=== PATIENT | female | born 1955 | race Caucasian/White ===

== ENCOUNTER 2019-08-17 10:24 | Outpatient (CLI) | payer OTHER, BC, SELFPAY ==
--- NOTE | 2019-08-17 10:42 | EST_ITS ---
Patient Info Name: Elke Yuan Age: 63 years : 1955 Gender: Female Ht: 63 in Wt: 120 lbs BSA: 1.56 m2 Exam Date: 08/17/2019 11:49 AM Exam Location: [facility] Stress Patient Status: Outpatient Admit Date: 08/17/2019 Staff Ordering Physician: Angy Urbina Attending Provider: Angy Urbina Exercise Technologist: Robyn Jack RDCS Exercise Physician: Demetrius Bowen DO Exam Type: CA stress test treadmill Study Info A treadmill exercise stress test was performed. Summary 1. 1. Negative Kanu exercise stress test for ischemic ST changes by ECG criteria. 2. 2. Good functional capacity, achieving 7 METs of workload. 3. 3. Baseline hypertension with hypertensive response to exercise. 4. 4. Appropriate HR response to exercise. 5. 5. Appropriate HR recovery at 1 minute post exercise. 6. 6. No imaging with stress testing. 7. 7. Patient informed of the above results. Protocol: Kanu Stress ECG Details Stage: REST Duration (min): 5 min : 54 sec Speed (mph): 0.0 Grade (%): 0 HR (bpm): 65 SBP (mmHg): 153 DBP (mmHg): 80 METS: --- Stage: REST Duration (min): 12 min : 59 sec Speed (mph): 0.0 Grade (%): 0 HR (bpm): 77 SBP (mmHg): 153 DBP (mmHg): 80 METS: --- Stage: STAGE 1 Duration (min): 1 min : 0 sec Speed (mph): 1.7 Grade (%): 10 HR (bpm): 94 SBP (mmHg): 153 DBP (mmHg): 80 METS: --- Stage: STAGE 1 Duration (min): 2 min : 0 sec Speed (mph): 1.7 Grade (%): 10 HR (bpm): 110 SBP (mmHg): 153 DBP (mmHg): 80 METS: --- Stage: STAGE 1 Duration (min): 3 min : 0 sec Speed (mph): 1.7 Grade (%): 10 HR (bpm): 116 SBP (mmHg): 216 DBP (mmHg): 85 METS: --- Stage: STAGE 2 Duration (min): 1 min : 0 sec Speed (mph): 2.5 Grade (%): 12 HR (bpm): 126 SBP (mmHg): 216 DBP (mmHg): 85 METS: --- Stage: STAGE 2 Duration (min): 2 min : 0 sec Speed (mph): 2.5 Grade (%): 12 HR (bpm): 133 SBP (mmHg): 216 DBP (mmHg): 85 METS: --- Stage: STAGE 2 Duration (min): 3 min : 0 sec Speed (mph): 2.5 Grade (%): 12 HR (bpm): 151 SBP (mmHg): 255 DBP (mmHg): 94 METS: --- Stage: STAGE 3 Duration (min): 0 min : 25 sec Speed (mph): 3.4 Grade (%): 14 HR (bpm): 141 SBP (mmHg): 263 DBP (mmHg): 97 METS: --- Stage: RECOVERY Duration (min): 0 min : 34 sec Speed (mph): 0.0 Grade (%): 0 HR (bpm): 133 SBP (mmHg): 247 DBP (mmHg): 97 METS: --- Stage: RECOVERY Duration (min): 1 min : 34 sec Speed (mph): 0.0 Grade (%): 0 HR (bpm): 98 SBP (mmHg): 247 DBP (mmHg): 97 METS: --- Stage: RECOVERY Duration (min): 2 min : 34 sec Speed (mph): 0.0 Grade (%): 0 HR (bpm): 87 SBP (mmHg): 247 DBP (mmHg): 97 METS: --- Stage: RECOVERY Duration (min): 3 min :
[2019-08-17 11:15] LABS: Blood Urea Nitrogen 16 mg/dL (7-17); Calcium 9.2 mg/dL (8.4-10.2); Carbon Dioxide 26 mmol/L (22-30); Chloride 105 mmol/L (98-107); Estimated Glomerular Filt Rate > 60; Glucose 87 mg/dL (65-105); Potassium 4.1 mmol/L (3.4-5.0); Sodium 138 mmol/L (137-145)
== END 2019-08-17 10:25 | disposition home or self-care (01) ==
LOC: ANHCARD 10:25
PROVIDERS: PCP Family Medicine; Visit Provider Physician Assistant Medical
DX: E87.5 Hyperkalemia (principal); R00.2 Palpitations; I10 Essential (primary) hypertension
CPT/HCPCS: 36415; 80048; 93017

== ENCOUNTER 2020-06-06 14:30 | Outpatient (CLI) | payer BC, MEDICARE, OTHER, SELFPAY ==
--- NOTE | ~2020-06-06 | MM_ITS ---
EXAMINATION: MM screening craol BI w alee HISTORY: Screening mammogram TECHNIQUE: Craniocaudal and mediolateral oblique 3-D tomosynthesis images were obtained and synthetic 2-D images were generated. Right rotated lateral cc view. CAD analysis was submitted and interpreted . COMPARISON: 11/01/2018 bilateral digital screening mammogram / diagnostic right digital mammogram and limited right breast ultrasound 05/24/2017 bilateral digital screening mammogram BREAST PARENCHYMAL COMPOSITION: The breasts are heterogeneously dense, which may obscure small masses . FINDINGS: There is no evidence of suspicious mass, calcification, or architectural distortion to sugg est malignancy in either breast. There has been no suspicious interval change. IMPRESSION: 1. No mammographic evidence of malignancy. 2. Recommend routine screening mammography in one year. BI-RADS Category 1: Negative Reviewed, dictated and finalized at location A.
== END 2020-06-06 14:31 | disposition home or self-care (01) ==
LOC: ANHIMG 14:33
PROVIDERS: PCP Family Medicine; Visit Provider Obstetrics & Gynecology
DX: Z12.31 Encounter for screening mammogram for malignant neoplasm of breast (principal)
CPT/HCPCS: 77063; 77067

== ENCOUNTER 2020-10-06 11:16 | Outpatient (CLI) | payer MEDICARE, OTHER, SELFPAY ==
--- NOTE | ~2020-10-06 | XR_ITS ---
EXAMINATION: XR foot RT min 3V DATE: 10/06/2020 11:39 INDICATION: Chronic right foot pain. TECHNIQUE: 4 views of right foot were obtained. COMPARISON: None. FINDINGS: There are surgical changes of bunionectomy with screw in first metatarsal. No fracture. The re is mild osteoarthritis of first metatarsophalangeal joint and some of the interphalangeal joints. IMPRESSION: 1. Mild polyarticular osteoarthritis. 2. Bunionectomy. Reviewed, dictated and finalized at location A.
== END 2020-10-06 11:17 | disposition home or self-care (01) ==
PROVIDERS: PCP Family Medicine; Visit Provider Nurse Practitioner Family
DX: M19.071 Primary osteoarthritis, right ankle and foot (principal)
CPT/HCPCS: 73630

== ENCOUNTER 2021-05-09 07:17 | Outpatient (CLI) | payer MEDICARE, OTHER, SELFPAY ==
[2021-05-09 07:57] LABS: Basophils Absolute Auto 0.1 K/mm3 (0.0-0.1); Basophils Percent Auto 1.5 % (0.2-1.2); Eosinophils Absolute Auto 0.2 K/mm3 (0-0.3); Eosinophils Percent Auto 3.1 % (0-4.4); Hematocrit 38.5 % (37.0-47.0); Hemoglobin 12.5 g/dL (12.0-15.0); Immature Granulocyte Absolute 0.01 K/mm3 (0.00-0.031); Immature Granulocyte Percent A 0.2 % (0-0.5); Lymphocytes Absolute Auto 1.94 K/mm3 (0.9-3.2); Lymphocytes Percent Auto 35.7 % (18.3-44.2); Mean Corpuscular HGB Conc 32.5 g/dl (32-36); Mean Corpuscular Hemoglobin 33.2 pg (26-34); Mean Corpuscular Volume 102.4 fl (80-100); Mean Platelet Volume 10.8 fl (7.4-10.4); Monocytes Absolute Auto 0.5 K/mm3 (0.1-0.6); Monocytes Percent Auto 9.6 % (2.6-8.5); Neutrophils Absolute Auto 2.7 K/mm3 (1.3-6.7); Neutrophils Percent Auto 49.9 % (45.5-73.1); Platelet Count Result 210 k/mm3 (150-375); Red Blood Count 3.76 M/mm3 (4.2-5.4); Red Cell Distribution Width 12.2 % (11.5-14.5); White Blood Count 5.4 K/mm3 (4.5-10.0)
[2021-05-09 08:06] LABS: Alanine Aminotransferase 26 U/L (4-35); Albumin Level 4.1 g/dL (3.5-5.1); Alkaline Phosphatase 63 U/L (38-126); Anion Gap 5 mmol/L (8-16); Aspartate Amino Transferase 33 U/L (14-36); Bilirubin,Total 0.5 mg/dL (0.2-1.3); Blood Urea Nitrogen 11 mg/dL (7-17); Calcium 8.8 mg/dL (8.4-10.2); Carbon Dioxide 29 mmol/L (22-30); Chloride 105 mmol/L (98-107); Cholesterol 186 mg/dL (0-200); Estimated Glomerular Filt Rate > 60; Glucose 102 mg/dL (65-110); HDL Direct 59 mg/dL; Potassium 3.7 mmol/L (3.4-5.0); Sodium 139 mmol/L (137-145); Triglycerides 87 mg/dL (<150)
[2021-05-09 08:17] LABS: LDL Cholesterol Direct 87 mg/dL
== END 2021-05-09 07:18 | disposition home or self-care (01) ==
LOC: ANHLAB 07:20
PROVIDERS: PCP Family Medicine; Visit Provider Physician Assistant Medical
DX: I10 Essential (primary) hypertension (principal); E78.5 Hyperlipidemia, unspecified
CPT/HCPCS: 36415; 80053; 80061; 84443; 85025

== ENCOUNTER 2021-07-30 01:19 | Day surgery (SDC) | payer MEDICARE, OTHER, SELFPAY ==
[2021-07-23 10:45] VITALS: BMI 22.3
--- NOTE | 2021-07-23 11:04 | PC.NURSE ---
Report to the Outpatient Waiting Room, entrance under the green pavilion located off [facility], at time _10:30AM on date __07/30/21 . OR Time: _11:30AM . - You and your visitor will be asked a series of questions to screen for COVID 19 for your protection. - Only one visitor is allowed at this time. - The patient visitor is requested to leave or wait in car when not with patient. - A mask is required within the hospital. Patients may have clear liquids (water, carbonated beverages, clear teas, apple juice) until 3 hours prior to surgery with a maximum of 20 ounces. - No food from midnight until time of surgery - Infants may have breast milk until 4 hours before surgery, formula 6 hours prior to surgery. - Children will be allowed to drink immediately following surgery. If applicable, please bring a bottle or sippy cup to assist with drinking. Juice, water, soda, and popsicles are readily available. For infants on formula, please bring formula the day of surgery. Pacifiers are allowed. Take the following medications with a SIP of water the morning of surgery: ___MORNING MEDICATION Medications to discontinue per physician NONE Date to take last dose Please no make-up, nail american, hairspray, perfume, deodorant, or body powder the day of surgery. No jewelry (including any body piercings) or valuables the day of surgery, leave them at home. Please take a shower or bath the night before, or the morning of, surgery with an antibacterial soap. Wear comfortable, loose fitting clothing. Children are encouraged to wear pajamas. - Jewelry must be removed prior to entering the operating room. Rings and piercings that are not removed may be cut off. - The hospital will not accept responsibility for valuables. - Please leave all valuables, including medications, at home the day of surgery. If you are going home after surgery, a licensed regional intermodal truck driver must drive you home. *MAY DRIVE SELF HOME(LOCAL ANESTHESIA) - NO public transportation without another adult. - We recommend that an adult stay with you for 24 hours following discharge. - We also recommend that you do not drive, make important decision, drink alcoholic beverages, or take any drugs that were not prescribed by your health care provider for at least 24 hours after your discharge time. For Pediatric surgeries, we recommend two adults accompany the child home (only one inside the building at this time). Follow any additional instructions given to you from your surgeon. If you or anyone in your household have experienced Covid symptoms in the past week, please notify your surgeon or the nurse liaison at the phone number below for possible testing. Telephone instructions given to ___PATIENT and asked if any additional questions and then verbalized understanding. Patient advised to call surgeon office or pre surgery nurse liaison [phone] if any additional questions.
--- NOTE | 2021-07-27 06:48 | PM.HPGS ---
History of Present Illness History of Present Illness Consent: Risks, benefits, and alternatives have been discussed and questions answered. Patient agrees to proceed with procedure. Chief complaint: Lower Lip Lesion Narrative: Elke Yuan is a 65 year old female with a pigmented lesion lower lateral aspect of the right lower tongue lip right lower lip Review of Systems Review of Systems: All systems reviewed & are unremarkable except as noted in HPI and below PMFSH Past Medical History Medical History Angioedema BMI 20.0-20.9, adult BMI 22.0-22.9, adult BMI 23.0-23.9, adult Encounter for screening colonoscopy Lesion of lip Sinusitis, acute Tobacco abuse Surgical History Surgical History H/O hand surgery Family History Family History Mother Cerebrovascular accident Sibling Family history of malignant neoplasm Father Family history of kidney disease Family history of heart disease in male family member before age 55 Social History Social History Smoking packs per day: 0.5 Smoking cigarettes per day: 10.0 Years smoked: 30 Smoking pack-years: 15.00 Smoking status: Current every day smoker Tobacco type: cigarettes Second hand tobacco smoke exposure: Yes Additional smoking assessment comments: 4 CIG/DAY CURRENTLY Alcohol intake: current Drinks per week: 4 Substance use: never Substance use type: does not use Living arrangements: with family Additional living arrangements comments: [facility] 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 Gender identity (if verbalized by the patient): Female Sexual Orientation (if Verbalized by the Patient): Straight or Heterosexual Spiritual care concerns: No Agree to blood products: Yes Comments family medical social history unremarkable Meds Home Medications and Allergies Home Medications Medication Instructions Recorded Confirmed Type albuterol sulfate 90 mcg/actuation 1 puff inhalation Q4H PRN 08/12/20 07/23/21 Rx aerosol inhaler (ProAir HFA) shortness of breath or wheezing #8.5 grams losartan 50 mg tablet 50 mg PO QAM 08/27/20 07/23/21 History epinephrine 0.3 mg/0.3 mL 0.3 mg (0.3 mL) IM ONCE #1 ea 10/06/20 07/23/21 Rx injection, auto-injector (EpiPen 2-Chance) lansoprazole 30 mg capsule,delayed 30 mg PO DAILY #90 caps 10/31/20 07/23/21 Rx release alprazolam 1 mg tablet 1 mg PO TID PRN anxiety #90 tabs 05/06/21 07/23/21 Rx rosuvastatin 5 mg tablet (Crestor) 5 mg PO QAM 07/07/21 07/23/21 History fluticasone propionate 50 2 spray intranasal DAILY PRN 07/23/21 07/23/21 History mcg/actuation nasal Congestion spray,suspension (Flonase Allergy Relief) levothyroxine 50 mcg tablet 50 mcg PO QAM 07/23/21 07/23/21 History Allergies Allergy/AdvReac Type Severity Reaction Status Date / Time ABHISHEK Inhibitors Allergy Severe Swelling Verified 07/23/21 10:38 of Lip/Tongue/Throat benazepril Allergy Severe angioedema Verified 07/23/21 10:38 hydromorphone Allergy Unknown Itching Verified 07/23/21 10:38 dicyclomine AdvReac Mild Dizziness Verified 07/23/21 10:38 [From A-Spas (dicyclomine)] TREE NUTS Allergy Severe Unknown Uncoded 07/23/21 10:38 Exam Narrative: chest clear heart without murmurs abdomen soft thick minute lesion right lower lip Assessment and Plan Assessment and plan (1) Lesion of lip: Code(s): K13.0 - Diseases of lips Status: Acute Plan plan is excision lesion right lower lip
--- NOTE | 2021-07-28 09:09 | SUR.PREOP ---
Pt called to report new medications (prednisone and tessalon pearls) for COPD flare/bronchitis. Pt states she had a negative Covid test yesterday at [facility]. Pt states symptoms started about a month ago and have been improving overall, except for a lingering cough and some fatigue. Pt instructed to report if symptoms worsened prior to surgery date. Pt verbalizes understanding.
--- NOTE | 2021-07-30 06:29 | WPDHPUPDATE1 ---
History and Physical Update Update Date/Time: 07/30/21 06:29 History and Physical has been reviewed, including an updated exam of the patient. There are NO changes in the patient's condition. Risks, benefits, and alternatives have been discussed and questions answered. Patient agrees to proceed with procedure.
[2021-07-30] MEDS: LIDO 1%/EPINEPHRINE/PF 1:200,000 30 ML VIAL 5 ML XX (10:45)
[2021-07-30 11:00] VITALS: BP 163/75; PULSE 74; RESP 16; TEMP 36.9; O2SAT 99
[2021-07-30 11:03] VITALS: BP 144/83; PULSE 75; RESP 14; O2SAT 98
[2021-07-30 11:11] VITALS: BP 168/80; RESP 16; O2SAT 97
--- NOTE | 2021-07-30 11:14 | W.PM.PROC2 ---
Procedure Note - Detailed Date of Procedure 07/30/21 Pre-op Diagnosis Lower Lip Lesion Post-op Diagnosis Same Procedure Performed Excision lower lip lesion Surgeon Jason Jackson MD Description of Procedure After induction local anesthesia pigmented lesion of the lower lip on the right side was elliptically excised and closed with 5 0 chromic
[2021-07-30 11:15] VITALS: BP 141/75; PULSE 68; RESP 16; O2SAT 98
--- NOTE | 2021-07-30 12:59 | SUR.PREOP ---
1040: PT STATES WAS IN THE HOSP MON 07/27/21 FOR CHEST PAIN. SEEN BY PROPOSAL WRITER. AR RULED OUT. COVID RULLED OUT. BRONCHITIS DX. BETTER TODAY. DR. ZEPEDA AWARE.
== END 2021-07-30 11:50 | disposition home or self-care (01) ==
PROVIDERS: PCP Family Medicine; Visit Provider Otolaryngology
PROC: (CPT 40810; principal; 2021-07-30 11:30)
DX: R23.4 Changes in skin texture (principal); F17.210 Nicotine dependence, cigarettes, uncomplicated; E03.9 Hypothyroidism, unspecified; Z79.51 Long term (current) use of inhaled steroids
CPT/HCPCS: 11441; 88305; 88342

== ENCOUNTER 2021-08-13 09:51 | Outpatient (CLI) | payer MEDICARE, OTHER, SELFPAY ==
--- NOTE | ~2021-08-13 | MM_ITS ---
EXAMINATION: MM screening carol BI w alee HISTORY: Screening TECHNIQUE: Craniocaudal and mediolateral oblique 3-D tomosynthesis images were obtained and synthetic 2-D images were generated. CAD analysis was submitted and interpreted. COMPARISON: Comparison to multiple prior studies sequentially, with oldest reviewed study dated 04/02. BREAST PARENCHYMAL COMPOSITION: The breasts are heterogenously dense, which may obscure small masses FINDINGS: There is no evidence of suspicious mass, calcification, or architectural distortion to sugg est malignancy in either breast. There has been no suspicious interval change. IMPRESSION: 1. No mammographic evidence of malignancy. 2. Recommend routine screening mammography in one year. BI-RADS Category 1: Negative Reviewed, dictated and finalized at location A.
--- NOTE | ~2021-08-13 | DEXA_ITS ---
Bone Density Report Name: KIM MORALES Age: 65 Sex: Female Ethnicity: White Date of : 1955 Indication: postmenopausal; screening for osteoporosis; height loss; Referring Provider: RODERICK MOSES Study: Bone densitometry was performed. Exam Date: August 13, 2021 Accession number: [id number] Bone Density: Region BMD T-score Z-score Classification AP Spine(L1-L4) 1.201 1.4 3.3 Normal Femoral Neck (Left) 0.727 -1.1 0.5 Osteopenia Total Hip (Left) 0.824 -1.0 0.3 Normal Femoral Neck (Right) 0.739 -1.0 0.6 Normal Total Hip (Right) 0.845 -0.8 0.5 Normal Total Hip Mean 0.834 -0.9 0.4 Normal World Health Organization criteria for BMD impression classify patients as: Normal (T-score at or above -1.0), Osteopenia (T-score between -1.0 and -2.5), or Osteoporosis (T-score at or below -2.5). 10-year Fracture Risk(1): Major Osteoporotic Fracture 8.4% Hip Fracture 1.3% Reported Risk Factors: [place] (), Neck BMD=0.727, BMI=24.1, smoking (1) FRAX(R) Version 3.08. Fracture probability calculated for an untreated patient. Fracture probability may be lower if the patient has received treatment. Clinical Information Provided by Patient: Smokes Has the following medical conditions: uterine ablation Patient maximum height was 64 Menopause Age: 44 No regular weight bearing exercise Drinks caffeinated beverages Onset of menses at age 16 Number of children 0 Impression: The patient has low bone mass, based on the Left Femoral Neck T-score. The patient has an estimated ten-year risk of hip fracture of 1.3% and an estimated ten-year risk of major fracture of 8.4%, based on the WHO FRAX algorithm. The patient has risk factors, including: smoking. Discussion: BONE DENSITY IS LOW AT ONE OR MORE SKELETAL SITES. This patient's lowest T-score is low at one or more skeletal sites. It meets the World Health Organization's (WHO) criteria for ?low bone mass? (T-score between -1.0 and -2.5). The patient's 10-year risk of fracture as calculated by FRAX is less than the threshold where pharmacological therapy is recommended by the National Osteoporosis Foundation (NOF). However, all treatment decisions require clinical judgment and consideration of individual patient factors, including patient preferences, comorbidities, previous drug use, risk factors not captured in the FRAX model (e.g., frailty, falls, vitamin D deficiency, increased bone turnover, interval significant decline in bone density) and possible under or overestimation of fracture risk by FRAX. The patient should follow a healthful lifestyle (good nutrition with adequate calcium and vitamin D, and appropriate weight-bearing exercise). Follow-Up: Consider repeating this study in 2 to 3 years to reassess this patient's status, o
== END 2021-08-13 09:52 | disposition home or self-care (01) ==
PROVIDERS: PCP Family Medicine; Visit Provider Obstetrics & Gynecology
DX: Z12.31 Encounter for screening mammogram for malignant neoplasm of breast (principal); Z78.0 Asymptomatic menopausal state; M85.852 Other specified disorders of bone density and structure, left thigh
CPT/HCPCS: 77063; 77067; 77080

== ENCOUNTER 2023-03-05 07:02 | Outpatient (CLI) | payer MEDICARE, OTHER, SELFPAY ==
[2023-03-05 07:56] LABS: Alanine Aminotransferase 43 U/L (6-35); Albumin Level 4.1 g/dL (3.5-5.1); Alkaline Phosphatase 72 U/L (38-126); Aspartate Amino Transferase 36 U/L (14-36); Bilirubin,Total 0.5 mg/dL (0.2-1.3)
== END 2023-03-05 07:03 | disposition home or self-care (01) ==
LOC: ANHLAB 07:04
PROVIDERS: PCP Family Medicine; Visit Provider Nurse Practitioner Family
DX: R74.8 Abnormal levels of other serum enzymes (principal)
CPT/HCPCS: 36415; 80076

== ENCOUNTER 2023-03-10 10:19 | Outpatient (CLI) | payer MEDICARE, OTHER, SELFPAY ==
--- NOTE | ~2023-03-10 | MM_ITS ---
EXAMINATION: MM screening carol BI w alee HISTORY: Screening TECHNIQUE: Craniocaudal and mediolateral oblique 3-D tomosynthesis images were obtained and synthetic 2-D images were generated. CAD analysis was submitted and interpreted. COMPARISON: Comparison to multiple prior studies sequentially, with oldest reviewed study dated 10/01. BREAST PARENCHYMAL COMPOSITION: Dense: The breasts are heterogeneously dense, which may obscure small masses FINDINGS: There is no evidence of suspicious mass, calcification, or architectural distortion to sugg est malignancy in either breast. There has been no suspicious interval change. IMPRESSION: 1. No mammographic evidence of malignancy. 2. Recommend routine screening mammography in one year. BI-RADS Category 1: Negative Reviewed, dictated and finalized at location A. ORN PHOTOGRAPHER
== END 2023-03-10 10:20 | disposition home or self-care (01) ==
PROVIDERS: PCP Family Medicine; Visit Provider Obstetrics & Gynecology
DX: Z12.31 Encounter for screening mammogram for malignant neoplasm of breast (principal)
CPT/HCPCS: 77063; 77067

== ENCOUNTER 2023-08-03 07:37 | Outpatient (CLI) | payer MEDICARE, OTHER, SELFPAY ==
[2023-08-03 08:18] LABS: Basophils Absolute Auto 0.1 K/mm3 (0.0-0.1); Basophils Percent Auto 1.6 % (0.2-1.2); Eosinophils Absolute Auto 0.1 K/mm3 (0-0.3); Eosinophils Percent Auto 2.6 % (0-4.4); Hematocrit 38.1 % (37.0-47.0); Hemoglobin 12.9 g/dL (12.0-15.0); Immature Granulocyte Absolute 0.02 K/mm3 (0.00-0.031); Immature Granulocyte Percent A 0.4 % (0-0.5); Lymphocytes Absolute Auto 1.76 K/mm3 (0.9-3.2); Lymphocytes Percent Auto 35.6 % (18.3-44.2); Mean Corpuscular HGB Conc 33.9 g/dl (32-36); Mean Corpuscular Hemoglobin 32.9 pg (26-34); Mean Corpuscular Volume 97.2 fl (80-100); Mean Platelet Volume 10.8 fl (7.4-10.4); Monocytes Absolute Auto 0.6 K/mm3 (0.1-0.6); Monocytes Percent Auto 11.9 % (2.6-8.5); Neutrophils Absolute Auto 2.4 K/mm3 (1.3-6.7); Neutrophils Percent Auto 47.9 % (45.5-73.1); Platelet Count Result 224 k/mm3 (150-375); Red Blood Count 3.92 M/mm3 (4.2-5.4); Red Cell Distribution Width 12.2 % (11.5-14.5); White Blood Count 4.9 K/mm3 (4.5-10.0)
[2023-08-03 08:39] LABS: Alanine Aminotransferase 30 U/L (6-35); Albumin Level 4.5 g/dL (3.5-5.1); Alkaline Phosphatase 58 U/L (38-126); Anion Gap 6 mmol/L (4-12); Aspartate Amino Transferase 32 U/L (14-36); Bilirubin,Total 0.6 mg/dL (0.2-1.3); Blood Urea Nitrogen 16 mg/dL (7-17); Calcium 9.4 mg/dL (8.4-10.2); Carbon Dioxide 30 mmol/L (22-30); Chloride 100 mmol/L (98-107); Cholesterol 158 mg/dL (0-200); Estimated Glomerular Filt Rate > 60; Glucose 99 mg/dL (65-110); HDL Direct 55 mg/dL; Sodium 136 mmol/L (137-145); Triglycerides 135 mg/dL (<150)
[2023-08-03 08:49] LABS: LDL Cholesterol Direct 80 mg/dL
== END 2023-08-03 07:38 | disposition home or self-care (01) ==
LOC: ANHLAB 07:39
PROVIDERS: PCP Family Medicine; Visit Provider Physician Assistant Medical
DX: E03.9 Hypothyroidism, unspecified (principal); E78.2 Mixed hyperlipidemia; I10 Essential (primary) hypertension; R31.29 Other microscopic hematuria; R74.8 Abnormal levels of other serum enzymes
CPT/HCPCS: 36415; 80053; 80061; 84443; 85025

== ENCOUNTER 2024-04-17 16:12 | Outpatient (CLI) | payer MEDICARE, OTHER, SELFPAY ==
--- NOTE | ~2024-04-17 | MM_ITS ---
EXAMINATION: MM screening [facility] BI w alee HISTORY: Screening mammogram TECHNIQUE: Craniocaudal and mediolateral oblique 3-D tomosynthesis images were obtained and synthetic 2-D images were generated. CAD analysis was submitted and interpreted. COMPARISON: 03/10/2023, 08/13/2021, 06/06/2020, 11/01/2018 BREAST PARENCHYMAL COMPOSITION:Dense: The breasts are heterogeneously dense, which may obscure small masses. FINDINGS: No suspicious mass, calcification, or architectural distortion are identified in either xavier ast to suggest malignancy. There has been no suspicious interval change. IMPRESSION: No mammographic evidence of malignancy. Recommend routine screening mammography in one year. BI-RADS Category 1: Negative Reviewed, dictated and finalized at location .
--- OUTSIDE RECORDS SUMMARY | 2024-04-17 18:02 | XMS_ITS | Referral Summary ---
Author Organization [facility] [employer] Address [address] [place] [address] Care Team Providers Care Ager Operator Name Role Phone Anthony Strong MD Primary Care Provider [phone] Source Comments [facility],non-owned Affiliates and Associated Physician Practices is amultiple site organization consisting of ambulatory clinics and hospital sitesin [place], [place], [place] and [place]. This disclosure is being madepursuant to the Care Everywhere program and may not contain all information available regarding this patient. Last updated 17.[facility] Allergies Active Allergy Reactions Criticality Noted Date Comments Hydromorphone Itching 10/24/2018 Tree Nuts Anaphylaxis High 10/12/2016 Medications * Be aware that medications may not be up to date on this document. Alwaysverify current medications with the patient. Medication Sig Dispensed Refills Start Date End Date Status levothyroxine (SYNTHROID) 50 MCG tablet Take 50 mcg by mouth Active EPINEPHrine (EPIPEN) 0.3 MG/0.3ML auto-injector pen Inject 0.3 mg into muscle once Active benazepril (LOTENSIN) 5 MG tablet Take 5 mg by mouth once daily 3 06/18/2018 Active Probiotic Product (ALIGN) 4 MG Take 1 capsule by mouth once daily Active diphenhydrAMINE (BENADRYL ALLERGY) 25 MG capsule Take 25 mg by mouth every 6 hours as needed for Itching Active fluticasone propionate (FLONASE) 50 MCG/ACT nasal spray [place] 2 sprays into each nostril once daily Active ALPRAZolam (XANAX PO) Take by mouth as needed Active Active Problems Problem Noted Date Diagnosed Date Elevated liver enzymes 08/30/2018 Overview (09/04/2018): 09/04/18 Fibroscan CAP 244, E 8.9 kPa Immunizations Name Administration Dates Next Due FLU VACCINE QUAD IIV4 PF ID 12/30/2015 INFLUENZA VACCINE, QUADR. (F LUZONE; FLULAVAL; FLUARIX; AFLURIA QUADRIVALENT; 6MO+), 0.5 ML (IIV4) 11/30/2018 TDAP (7yrs+) 11/30/2018 ZOSTER VACCINE, LIVE 12/30/2015 Social History Tobacco Use Types Packs/Day Years Used Date Smoking Tobacco: Every Day Cigarettes Smokeless Tobacco: Never Comments:second hand smoke e xposure Alcohol Use Standard Drinks/Week Comments Not Currently 10 (1 standard drink = 0.6 oz pu re alcohol) Sex and Gender Information Value Date Recorded Sex Assigned at Not on file Gender Identity Not on file Sexual Orientation Not on file Last Filed Vital Signs Vital Sign Reading Time Taken Comments Blood Pressure 146/85 11/08/2018 2:00 PM CDT Pulse 82 11/08/2018 2:00 PM CDT Temperature 36.1 C (97 F) 11/08/2018 12:58 PM CDT Respiratory Rate 21 11/08/2018 2:00 PM CDT Oxygen Saturation 98% 11/08/2018 2:00 PM CDT Inhaled Oxygen Concentration - - Weight 56.7 kg (125 lb) 11/08/2018 11:26 AM CDT Height 162.6 cm (5' 4 ) 11/03/2018 11:57 AM CDT Body Mass Index 21.46 11/03/2018 11:57 AM CDT Functional Status Functional Status Response Date of Assess ment Is person deaf or have serious hearing difficult y? No 11/08/2018 Is person blind or have serious difficulty seein g? No 11/08/2018 Does person have serious dif ficulty walking/climbing stairs? No 11/08/2018 Does person have difficulty dressing/bathing? No 11/08/2018 Does person have difficulty doing errands alone? No 11/08/2018 Cognitive Status Response Date of Assessm ent Does person have difficulty concentrating/remembering/making decisions? No 11/08/2018 Plan of Treatment Not on file Procedures Procedure Name Priority Date/Time Associated Diagnosis Comments HEPATITIS C ANTIBODY Routine 06/17/2014 5:09 PM CDT from Last 3 Months or Most Recently Relevant to Health Maintenance Results * HEPATITIS C ANTIBODY (06/17/2014 5:09 PM CDT) Hepatitis C Antibody Non-react brandon Non-reac tive [facility] Comment: Hepatitis C Antibody screen indicates no serologic evidence of past or current infection with Hepatitis C Virus. Patients with unexplained liver disease who are immunocompromised or suspected of having acute Hepatitis C infection may benefit from Nucleic Acid Test (ROMELIA) for Hepatitis C Viral RNA to confirm Hepatitis C status. Blood specimen (specimen) BLOOD SPECIMEN / Unknown 06/17/2014 5:09 PM CDT 06/17/2014 5:35 PM CDT Kanu Rivera MD LAB - CHEMISTRY BRANDON [place] Organization Address City/State/[facility] Co de Phone Number [facility] [address] [place] [address] from Last 3 Months or Most Recently Relevant to Health Maintenance Insurance Payer Benefit Plan / Group Subscriber ID Effective Dates Phone Address Type MEDICARE S MEDICARE PART B [id number] 2019-Pres ent [address] [address] [place] [address] Medicare [employer] [place] OA [id number] 2021-Prese nt [address] [place] [address] [facility] OA [id number] 2018-Prese nt [address] [place] [address] [facility] PPO [id number] 2018-Prese nt [address] [place] [address] PPO Care Teams Ager Operator Relationship Specialty Start Date End Date Atnhony Strong MD [address] [place] [address] PCP - General Family Medicine 07/11/12
--- OUTSIDE RECORDS SUMMARY | 2024-04-17 18:02 | XMS_ITS | Clinical Summary ---
Author Organization [facility] Address [address] [place] [address] Care Team Providers Care Glue Specialty Supervisor Name Role Phone Unavailable Primary Care Provider Unavailabl e Social History Tobacco Use Types Packs/Day Years Used Date Smoking Tobacco: Never Assessed Comments Unknown Sex and Gender Information Value Date Recorded Sex Assigned at Not on file Legal Sex Female 8:28 PM CDT Gender Identity Not on file Sexual Orientation Not on file Plan of Treatment Health Maintenance Due Date Last Done Comments Colorectal Cancer Screening Colonoscopy (10 Years) 1955 Hepatitis C 1972 DTaP, Tdap and Td Vaccines ( 1 - Tdap) 1973 Mammogram Screening 1994 Zoster Vaccines (1 of 2) 2004 Dexa Scan (General) 11/23/2019 Pneumococcal Vaccine: 65+ Ye ars (1 of 1 - PCV) 11/23/2019 COVID-19 Vaccine (2023-2 5 season) 2023 Influenza Adult (#1) 2023 RSV Immunization or 60+ Years (1 - 1-dose 75+ series) 2029 Meningococcal B Vaccine Aged Out No l onger eligible based on patient's age to complete this topic Meningococcal Vaccine Aged Out No yasmeen mario eligible based on patient's age to complete this topic RSV Immunizations Under 20 Months Aged Out No longer eligible based on patient's age to complete this topic
--- OUTSIDE RECORDS SUMMARY | 2024-04-17 18:02 | XMS_ITS | Encounter Summary ---
Author Organization [facility] Address [address] [place] [address] Care Team Providers Care Machine Feeder Floorperson Name Role Phone Anthony Strong MD Primary Care Provider Encounter Details Date Type Department Care Team (Latest Contact Info) Description 12/17/2014 Lab Requisition [facility] - Lab Cytogenetics [address] [place] [address] Liu Bean MD [address] [place] [id number] Myelodysplastic syndrome (HCC) Social History Tobacco Use Types Packs/Day Years Used Date Smoking Tobacco: Never Assessed Sex and Gender Information Value Date Recorded Sex Assigned at Not on file Gender Identity Not on file Sexual Orientation Not on file documented as of this encounter Plan of Treatment Not on file documented as of this encounter Procedures Procedure Name Priority Date/Time Associated Diagnosis Comments CYTOGENETICS CANCER PANEL Routine 12/17/2014 3:51 PM MOSAIC TECHNICIAN Myelodysplastic syndrome documented in this encounter Results * CYTOGENETICS CANCER PANEL (12/17/2014 3:51 PM MOSAIC TECHNICIAN) Indication for Study Anemia / MDS FISH MDS panel requested by physician 5 7:34 AM MOSAIC TECHNICIAN [facility] Results Cytogenetics Fluorescence In-Situ Hybridization (FISH): Analysis of 200 interphase cells hybridized with specific labeled fluorescent probes*: break apart EVI1 probes* directed onto 3q26.2, dual labeled probes* D5S23/[id number] directed onto 5p15.2/5q31, dual labeled probes* [id number]/[id number] directed onto 7 cent/7q31, dual labeled [id number]/[id number] directed onto 8cent/20q11.2 and dual break apart probes* FOXO1 directed onto 13q14 showed the following results: nuc asia(EVI1x2)[194/200] ,(D5S23,B8C063,EGR1) x2[189/200],(D7Z1,D7 S486)x2[198/200],(CE P8,Q82G644)x2[189/20 0],(RKUE8f3)[193/200 ] Normal Note: The remaining percentage of cells have signals that either represent G1 cells or endoreduplicated cells of no significance. Chromosome analysis is in progress. ====== Analysis and count of 20 cells (8 cells karyotyped, GTL-banding) from 24-hour unstimulated and 72-hour Interleukin stimulated bone marrow cultures showed the following chromosome pattern: 46,XX[20] 5 7:34 AM [facility] Interpretation FISH was negative for all the probes of MDS panel. 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 5 7:34 AM [facility] Preliminary result electronically signed by Sandra Pineda, PhD [facility] on 12/20/2014 at 7:24 AM Disclaimer *This test was developed, and its performance characteristics determined by [facility] as required by CLIA '88 Regulations. It has not been cleared or approved for specific uses by the U.S. Food and Drug Administration. The FDA has determined that such clearance or approval is not necessary. This test is used for clinical purposes. It should not be reported as investigational or for research. --------- Notes for FISH probes: 1- At the pretreatment level, the cutoff values for trisomy is 1%, dual breakapart is 3 to 5%, double fusion is 1%, and monosomy/deletion is 5 to 8% for no FFPE specimen and 20% for FFPE specimen. Efficiency of the probe intensity was acceptable overall. 2- At the post-treatment level, any identified percentage found below the pretreatment cutoff values could not be interpreted unequivocally and needs to be correlated with clinicopathological and clinical findings. At the post treatment level, a low percentage could either represent an actual minimal residual disease or an actual nature of normal cell division. 3- Cutoff values are combined for all different probes forming a range of percentages which covers low/high ends of each probe that fluctuate due to environmental conditions. Percentages that are close to the cutoff values have to be interpreted in correlation with clinicopathological and clinical findings. 4- An additional validation is performed by correlating pathology with cytogenetic findings. 5 7:34 AM [facility] Client Information [facility] - 5 7:34 AM [facility] Other BONE MARROW SPECIMEN / Unknown 12/17/2014 3:51 PM MOSAIC TECHNICIAN 12/17/2014 3:50 PM [facility] Liu Bean MD LAB - PATHOLOGY/CY TOLOGY ORDERABLES [facility] [address] [address] documented in this encounter Visit Diagnoses Diagnosis Myelodysplastic syndrome (HCC) Myelodysplastic syndrome, unspecified documented in this encounter Care Teams Machine Feeder Floorperson Relationship Specialty Start Date End Date Anthony Strong MD [address] [place] [address] PCP - General Family Medicine 07/11/12 documented as of this encounter
--- OUTSIDE RECORDS SUMMARY | 2024-04-17 18:02 | XMS_ITS | CONTINUITY OF CARE DOCUMENT ---
Author Name enzo alicearobert Address Unknown Organization [facility] Address [address] [place] [address] Phone [phone] Care Team Providers Care Assistant Professor Surgical Technology Name Role Phone Jorge L Huston MD Unavailable NANETTE MURPHY, EDEL F Unavailable NANETTE MURPHY, EDEL F Unavailable [phone] PROBLEMS Condition Status Date Provider Notes Cardiovascular screening active Jorge L henderson MD Hypertension active Jorge L Huston MD Hypothyroidism active Jorge L Huston MD Chest pain-type to be determined active Julio Huston MD Palpitations active Jorge L Huston MD ENCOUNTERS Date Type Provider Location Encounter Diag nosis - In-person encounter Office Visit Jorge L Huston MD [facility] - In-person encounter Office Visit Jorge L Huston MD [facility] - In-person encounter Office Visit Jorge L Huston MD [facility] Palpitations - In-person encounter Office Visit Jorge L Huston MD [facility] Chest pain-type to be determined - In-person encounter Office Visit Jorge L Huston MD [facility] - In-person encounter Office Visit Jorge L Huston MD [facility] - In-person encounter Office Visit Jorge L Huston MD [facility] - In-person encounter Office Visit Jorge L Huston MD [facility] Cardiovascular screeningHypertensionHypothyroidism VITAL SIGNS Date Observation Value Provider Body Mass Index (Ratio) 24.03 kg/m2 Rajiv Huston MD blood pressure, diastolic 83 mm[Hg] Li nkLogic blood pressure, systolic 157 mm[Hg] Sylvia kLogic respiratory rate E&M 15 /min Skylar Lomas iller blood pressure, cuff size regular Madelyn polanco Mcmillan blood pressure, diastolic 83 mm[Hg] Madelyn [facility] blood pressure, systolic 157 mm[Hg] [facility], oximetry 97 % [facility] pulse rate 81 /min [facility] weight E&M 140 [lb_av] [facility] height E&M 64 [in_i] Skylar [place] Body Mass Index (Ratio) 23.69 kg/m2 Rajiv Huston MD blood pressure, diastolic 85 mm[Hg] Neva Devries blood pressure, systolic 142 mm[Hg] Obdulia Devries respiratory rate E&M 18 /min Kelly Devries pulse rate 75 /min Kelly Devries oxygen saturation, oximetry 97 % Kelly Devries weight E&M 138 [lb_av] Kelly Devries height E&M 64 [in_i] Kelly Devries Body Mass Index (Ratio) 23.34 kg/m2 Rajiv Huston MD blood pressure, diastolic 75 mm[Hg] Ri alecia Brewer blood pressure, systolic 137 mm[Hg] Eric Brewer blood pressure, cuff size regular Ri alecia Brewer oxygen saturation, oximetry 99 % Jessica Brewer respiratory rate E&M 14 /min Mari Brewer pulse rate 76 /min Jessica cruz weight E&M 136 [lb_av] Jessica cruz height E&M 64 [in_i] Jessica cruz Body Mass Index (Ratio) 23.00 kg/m2 Rajiv Huston MD blood pressure, diastolic 79 mm[Hg] Ca therine [place] blood pressure, systolic 158 mm[Hg] Cat herine [place] oxygen saturation, oximetry 98 % Maryjane Kaden respiratory rate E&M 16 /min Catheri ne Kaden blood pressure, cuff size regular Ca therine Kaden weight E&M 134 [lb_av] Maryjane [place] height E&M 64 [in_i] Maryjane [place] Body Mass Index (Ratio) 23.00 kg/m2 Rajiv Huston MD blood pressure, diastolic 79 mm[Hg] Isabella nkLognir blood pressure, systolic 159 mm[Hg] Sylvia kLognir blood pressure, diastolic 79 mm[Hg] Neva Ivan blood pressure, systolic 159 mm[Hg] Madhavi Ivan oxygen saturation, oximetry 98 % Perry Ivan respiratory rate E&M 18 /min Tyler Ivan pulse rate 78 /min Perry cruz weight E&M 134 [lb_av] Perry cruz blood pressure, cuff size regular Neva Ivan height E&M 64 [in_i] Perry Jose cruz Body Mass Index (Ratio) 22.86 kg/m2 Rajiv Huston MD blood pressure, diastolic 70 mm[Hg] Yajaira Randolph blood pressure, systolic 142 mm[Hg] Faviola Randolph oxygen saturation, oximetry 98 % Alisson Randolph respiratory rate E&M 16 /min Dorie Randolph pulse rate 75 /min Alisson leblanc weight E&M 133.2 [lb_av] Alisson jurado height E&M 64 [in_i] Alisson leblanc Body Mass Index (Ratio) 22.66 kg/m2 Rajiv Huston MD blood pressure, cuff size regular Ke rri Jennifer blood pressure, diastolic 60 mm[Hg] Ke rrishan Rodriguez blood pressure, systolic 122 mm[Hg] Calvin Rodriguez oxygen saturation, oximetry 98 % Guera Rodriguez respiratory rate E&M 16 /min Guera hernandez pulse rate 91 /min Guera Jacobson er weight E&M 132 [lb_av] Guera Jacobson lder height E&M 64 [in_i] Guera Jacobson er Body Mass Index (Ratio) 22.14 kg/m2 Rajiv Huston MD blood pressure, resting No Taiwo ty Milka blood pressure, cuff size regular Kr isty [place] blood pressure, diastolic 70 mm[Hg] Kr isty [place] blood pressure, systolic 130 mm[Hg] Katiana Jarquin oxygen saturation, oximetry 98 % Emily Jarquin respiratory rate E&M 18 /min Emily Jarquin temperature site 82 Emily Busb y height E&M 64 [in_i] Emily Jarquin weight E&M 129 [lb_av] Emily Jarquin ALLERGIES Allergy Name Onset Date Reaction Criticality Status ABHISHEK INHIBITORS High Criticality acti ve DILAUDID itchy Low Criticality active RESULTS Date Observation Value Provider Reference Range Interpretation Location cholesterol, non-HDL, total 115 MG/DL (CALC) [facility] <130 Normal cholesterol/HDL ratio, serum, percent 2.4 (calc) [facility] <5.0 Normal LDL cholesterol, serum 93 MG/DL (CALC) [facility] Normal triglyceride, serum, fasting 127 mg/dL [facility] <150 Normal HDL cholesterol, serum 84 mg/dL [facility] > OR = 50 Normal cholesterol, serum 199 mg/dL [facility] <200 Normal HISTORY OF MEDICATION USE Medication Status Instructions Dates Provider Indications Com ments losartan 100 mg tablet active TAKE 1 TABLET BY MOUTH EVERY DAY Gabriella Rushing losartan 100 mg tablet completed Take 1 tablet by mouth once a day - Gabriella [facility] rosuvastatin 5 mg tablet active TAKE 1 TABLET BY MOUTH EVERY DAY ret furosemide 20 mg tablet active 1 tablet once a day as needed Jorge L Hustno MD rosuvastatin 5 mg tablet completed - Stefani Connell rosuvastatin 5 mg tablet completed 1 tablet once a day - Stefani Connell losartan 50 mg tablet completed TAKE 1 TABLET BY MOUTH DAILY - Jorge L Huston MD lansoprazole 30 mg capsule,delayed release(DR/EC) active TAKE 1 CAPSULE BY MOUTH DAILY Alisson Randolph METOPROLOL SUCCINATE ER 25 MG ORAL TABLET EXTENDED RELEASE 24 HOUR completed one tab daily - Jorge L Huston MD losartan 50 mg tablet completed Take 1 tablet by mouth once a day - Jorge L Huston MD #30, 30 days supply, Filled 03/02/2020 epinephrine 0.3 mg/0.3 mL auto-injector active as needed Emily Jarquin #2, 1 days supply, Filled 02/04/2020 Prevnar 13 (PF) 0.5 mL syringe active intramuscularly Emily Jarquin #0.5, 1 days supply, Filled 01/10/2020 fluticasone propionate 50 mcg/actuation spray,suspension active Use 2 spray into both nostrils once a day Emily Jarquin #48, 90 days supply, Prescribed by ALEXANRDA SHARPE, Filled 10/10/2019 alprazolam 1 mg tablet active tablet by mouth as needed Emily Jarquin #90, 30 days supply, Filled 08/09/2019 pantoprazole 40 mg tablet,delayed release (DR/EC) completed Take 1 tablet by mouth once a day - Emily Jarquin #30, 30 days supply, Prescribed by ALEXANDRA SHARPE, Filled 04/06/2019 levothyroxine 50 mcg tablet active Take 1 tablet by mouth once a day Emily Jarquin #90, 90 days supply, Prescribed by ALEXANDRA SHARPE, Filled 01/15/2020 SOCIAL HISTORY Date Observation Value Provider passive cigarette sm katie exposure no [facility] smoking, year quit 2021 [facility] number of years as a smoker 30 a [facility] smoking history, tot al pack/day 3-4 cig qd [facility] cigarette use yes [facility] smoking status Former smoker [facility] social history reviewed E&M revi ewed - no changes required Jorge L Huston MD social history E&M Marital Statu s: C hildren: 0 O ccupation: Retired Senior Attorney Smoking History: P atient is a former smoker. Jorge L Huston MD social history reviewed E&M revi ewed - no changes required Jorge L Huston MD smoking, year quit 2021 Jessica Brewer passive cigarette sm katie exposure no Jessica Brewer number of years as a smoker 30 a Jessica Brewer smoking history, tot al pack/day 3-4 cig qd Jessica Brewer cigarette use yes Jessica dunlap smoking status Former smoker Jessica rivera social history E&M Marital Statu s: Jayashree prettyen: 0 O ccupation: Retired Senior Attorney Smoking History: P atient currently smokes every day. Jorge L Huston MD social history reviewed E&M revi ewed - no changes required Jorge L Huston MD passive cigarette sm katie exposure no Maryjane Kaden number of years as a smoker 30 a Maryjane Kaden smoking history, tot al pack/day 3-4 cig qd Maryjane [place] cigarette use yes Maryjane Kaden smoking status Current every day smoker C atherine [place] social history reviewed E&M revi ewed - no changes required Jorge L Huston MD social history E&M Marital Statu s: C sukhwinderen: 0 O ccupation: Retired Senior Attorney Smoking History: P atient currently smokes every day. Jorge L Huston MD social history reviewed E&M revi ewed - no changes required Jorge L Huston MD passive cigarette sm katie exposure no Alisson Randolph number of years as a smoker 30 a Alisson Randolph smoking history, tot al pack/day 3-4 cig qd Alisson Randolph cigarette use yes Alisson jurado smoking status Current every day smoker Cesilia Randolph passive cigarette sm katie exposure no Jorge L Huston MD social history E&M Marital Statu s: Jayashree pan: 0 O ccupation: Retired Senior Attorney Smoking History: P atient currently smokes every day. Jorge L Huston MD social history reviewed E&M revi ewed - no changes required Jorge L Huston MD number of years as a smoker 30 a Guera Perkinstseringvipulbretnoel smoking history, tot al pack/day 3-4 cig qd Guera Brandtbretnoel cigarette use yes Guera alaniz smoking status Current every day smoker K tomasz Arreolakennethog social history E&M Marital Statu s: Jayashree pan: 0 O ccupation: Retired Senior Attorney Smoking History: P atient currently smokes every day. Jorge L Huston MD social history reviewed E&M revi ewed - no changes required Jorge L Huston MD number of years as a smoker 30 a Emily Jarquin smoking history, tot al pack/day 3-4 cig qd Emily Hopkinsby cigarette use yes Emily Jarquin smoking status Current every day smoker K lobo Jarquin FAMILY HISTORY Family Member Condition First Degree Blood Relative No Known Rel ative INSURANCE PROVIDERS Payer name Policy type / Coverage type Applegate red democrat ID [employer] PPO Other [id number] [place] MED[place] Medicare [id number] ADVANCE DIRECTIVES Name Date DISCUSSED - NO DECISION MADE TREATMENT PLAN Date Name Performer [id number],SJorge L MD [id number],S, Jorge L cano MD [id number],SJorge L MD [id number],B, Jorge L cano MD [id number],SJorge L MD [id number],S,Start RPM Julio iq Ramadan [id number],B, Jorge L Ramada n [id number],N,P ossibly 'panic attacks', but more likely SVT. O nly two occurances, so an event recorder is unlikely to catch it. I suggested she purchase a [employer] Mobile device. Jorge L Ramadan [id number],S, Jorge L Ramada n [id number],S, Jorge L Ramada n [id number],B, Jorge L Ramada n [id number],S, Jorge L Ramada n [id number],S, Jorge L Ramada n [id number],S, Jorge L Ramada n [id number],B, Jorge L Ramada n Cardiology Jorge L Ramadan Cardiology Jorge L Ramadan Cardiology Jorge L Ramadan Cardiology Jorge L Ramadan Cardiology Jorge L Ramadan Cardiology Jorge L Ramadan Cardiology Jorge L Ramadan Cardiology Jorge L Ramadan Cardiology Jorge L Ramadan Cardiology:Start RPM Jorge L Ramad santiago MURPHY Cardiology Jorge L Ramadan Cardiology:Possibly 'panic attacks', but more likely SVT. O nly two occurances, so an event recorder is unlikely to catch it. I suggested she purchase a [employer] Mobile device. Jorge Lhumaira Huston MD Cardiology Jorge L Ramadan Cardiology Jorge L Ramadan Cardiology Jorge L Ramadan Cardiology Jorge L Ramadan MD Cardiology Jorge L Huston MD Cardiology Jorge L Huston MD Cardiology Jorge L Huston MD Cardiology Follow up Jorge L henderson MD Cardiology Follow up Jorge L henderson MD Cardiology Jorge L Huston MD Cardiology:Will star t metoprolol. C heck ECHO and renal artery duplex. Jorge L Huston MD Date Name LIPID PANEL RPM (remote patient monitoring) RPM (remote patient monitoring) RPM (remote patient monitoring) Renal Artery Duplex Complete Echo HISTORY OF PROCEDURES Procedure Date Procedure Name Provider Procedure Notes S tatus EKG Jorge L Huston MD complete d EKG Jorge L Huston MD complete d
--- OUTSIDE RECORDS SUMMARY | 2024-04-17 18:02 | XMS_ITS | Patient Health Summary ---
Author Organization [facility] Address [address] [address] Care Team Providers Care Music Therapy Teacher Name Role Phone Anthony Strong MD Primary Care Provider [phone] Note from [facility] in [place],non-owned Affiliates and Associated Physician Practices is amultiple site organization consisting of ambulatory clinics and hospital sitesin [place], [place], [place] and [place]. This disclosure is being madepursuant to the Care Everywhere program and may not contain all information available regarding this patient. Last updated 17.[facility] Allergies * Hydromorphone(Itching) * Tree Nuts(Anaphylaxis) -High Criticality Medications * Be aware that medications may not be up to date on this document. Alwaysverify current medications with the patient. * levothyroxine (SYNTHROID) 50 MCG tablet Take 50 mcg by mouth * EPINEPHrine (EPIPEN) 0.3 MG/0.3ML auto-injector pen Inject 0.3 mg into muscle once * benazepril (LOTENSIN) 5 MG tablet(Started 06/18/2018) Take 5 mg by mouth once daily 3 refills left * Probiotic Product (ALIGN) 4 MG Take 1 capsule by mouth once daily * diphenhydrAMINE (BENADRYL ALLERGY) 25 MG capsule Take 25 mg by mouth every 6 hours as needed for Itching * fluticasone propionate (FLONASE) 50 MCG/ACT nasal spray Cyclone 2 sprays into each nostril once daily * ALPRAZolam (XANAX PO) Take by mouth as needed Active Problems Problem Noted Date Diagnosed Date Elevated liver enzymes 08/30/2018 Immunizations * FLU VACCINE QUAD IIV4 PF ID(Given 12/30/2015) * INFLUENZA VACCINE, QUADR. (FLUZONE; FLULAVAL; FLUARIX; AFLURIA QUADRIVALENT; 6MO+), 0.5 ML (IIV4)(Given 11/30/2018) * TDAP (7yrs+)(Given 11/30/2018) * ZOSTER VACCINE, LIVE(Given 12/30/2015) Social History Tobacco Use Types Packs/Day Years [...] Mass Index 21.46 11/03/2018 11:57 AM CDT Procedures * [place](Performed 11/08/2018) * TX DRAIN/INJECT LARGE JOINT/BURSA(Performed 11/08/2018) Performed for Carpal tunnel syndrome, left * TX REVISE MEDIAN N/CARPAL TUNNEL SURG(Performed 11/08/2018) Performed for Carpal tunnel syndrome, left * TX LIVER ELASTOGRAPHY(Performed 09/04/2018) Performed for Elevated liver enzymes * PT-INR(Performed 09/01/2018) Performed for Elevated liver enzymes * COMPREHENSIVE METABOLIC PANEL(Performed 09/01/2018) Performed for Elevated liver enzymes * CBC W AUTO DIFFERENTIAL(Performed 09/01/2018) Performed for Elevated liver enzymes * PT-INR [facility](Performed 07/13/2018) Performed for Elevated liver enzymes * COMPREHENSIVE METABOLIC PANEL(Performed 07/13/2018) Performed for Elevated liver enzymes * CBC W AUTO DIFFERENTIAL(Performed 07/13/2018) Performed for Elevated liver enzymes * CYTOGENETICS CANCER PANEL(Performed 12/17/2014) Performed for Myelodysplastic syndrome * HEPATITIS C GENOTYPE(Performed 06/17/2014) * KDYBC-2-[id number] BLOOD PHENOTYPING PANEL(Performed 06/17/2014) * SMOOTH MUSCLE ANTIBODY(Performed 06/17/2014) * MITOCHONDRIAL ANTIBODY SCREEN(Performed 06/17/2014) * ROCAEL BLOOD SCREEN(Performed 06/17/2014) * HEPATITIS A ANTIBODY(Performed 06/17/2014) * HEPATITIS C RNA QUANTITATIVE(Performed 06/17/2014) * FERRITIN(Performed 06/17/2014) * HEPATITIS C ANTIBODY(Performed 06/17/2014) * HEPATITIS B SURFACE ANTIGEN W RFLX CONFIRMATION(Performed 06/17/2014) * HEPATITIS B SURFACE ANTIBODY(Performed 06/17/2014) * HEPATITIS B CORE ANTIBODY TOTAL(Performed 06/17/2014) * GPFMC-4-LLZTOXYDLST BLOOD(Performed 06/17/2014) * COMPREHENSIVE METABOLIC PANEL(Performed 06/17/2014) * PT-INR [facility](Performed 06/17/2014) * CBC W AUTO DIFFERENTIAL(Performed 06/17/2014) * CBC W AUTO DIFFERENTIAL(Performed 06/17/2014) * XR WRIST RIGHT 3VW OR MORE(Performed 07/11/2012) Performed for Neoplasm Of Unspecified Nature Of Bone, Soft Tissue, And Skin Results * ANESTHESIA BLOCK PERF (11/08/2018 12:24 PM CDT) Narrative Alina Beyer APRN-CRNA - 11/08/2018 12:24 PM CDT Alina Beyer APRN-CRNA 11/08/2018 12:25 PM Stefanie Block: Patient Location: OR. Procedure: Stefanie Block Pre Procedure Section: Pre-Anesthetic Checklist: Patient identified, Site examined, Surgical consent verified, Pre-op evaluation done, Informed consent obtained, Allergies reviewed, IV Checked, Risks and benefits discussed, Monitors and equipment, Time-out performed and Questions answered/anesthesia questions answered Patient Position: supine Laterality: left Monitors: BP, continuous pluse ox, EKG and End tidal CO2 Patient Sedated? Yes Sedation Types: moderate. Block IV already in place: yes Procedure: Tourniquet: single Inflation Pressure: 300 Arm Exsanguinated: yes Tourniquet Inflated: yes Pulses Checked: yes Drug Injected: yes Procedure Tolerance: tolerated well Staff Section Anesthesia Provider: Alina Beyer APRN-ALETA, Performed the procedure Galindo Lomas Del Rosario DO GENERAL ANESTHESIA O RDERABLES * TX LIVER ELASTOGRAPHY (09/04/2018 11:20 PM CDT) Narrative Dante Esparza MD - 09/04/2018 11:20 PM CDT Dante Esparza MD 09/04/2018 11:20 PM Diagnosis: Elevated liver enzymes RN verified patient not , no implanted devices and NPO for prior 3 hours. Vital signs taken, procedure explained and consent signed. Date of Exam: 09/04/2018 Liver Stiffness: (E, kPa) median: 8.9 IQR (interquartile range): 1.6 IQR/Median% (ideally < 30%): 18 CAP (controlled attenuation parameter): 244 Technical Difficulty: None Ordering Provider: Doug Toney MD Phone Fax Fibroscan interpretation: I have personally reviewed the Fibroscan report and associated tracings. The calculated liver stiffness (E, kPa) indicates that: The probability of advanced liver fibrosis is: low to moderate. The loss of ultrasound signal, (controlled attenuation parameter, CAP [dB/m]), indicates that the probability of hepatic steatosis is: mild. Dante Esparza MD The following criteria are used to indicate the probability of advanced (stage 3-4) fibrosis: < 7.0 kPa: low 7.0-8.9 kPa: low to moderate 9.0-14.9 kPa: moderate 15-20 kPa: high > 20 kPa: very high Liver stiffness > 20 kPa is also associated with a high probability of complications of portal hypertension including varices and ascites. Liver stiffness > 50 kPa is associated with a high risk of variceal bleeding. Note: Liver stiffness is increased by factors other than fibrosis including passive congestion, infiltrative processes, active alcoholism, biliary obstruction and marked inflammation. The interpretation of the Fibroscan result provided above may not have taken such factors into account. Disease etiology also influences Fibroscan cutoff values for fibrosis stages and the following cutoffs have been proposed (Aide et al, Clin Gastro Hepatol 2015; 13:27-36): Cutoffs for Stage 3 and Stage 4 fibrosis respectively: Hepatitis B: >9 and >11.7 kPa Hepatitis C: >9.5 and >12.5 kPa HCV-HIV: >11 and >14 kPa Cholestatic liver diseases: >10 and >17.9 kPa NAFLD/BOOKER: >10 and >14 kPa CAP estimates of steatosis: normal <200 dB/m maybe present 200 to 250 dB/m moderate 250-300 dB/m substantial > 300 dB/m (Note that Fibroscan is not a quantitative measure of liver fat and the risk of NAFLD progression is unrelated to the degree of steatosis.) These criteria are estimates and may change as additional supporting data becomes available. [email or web address] Doug Toney MD PROCEDURE/SAMANTA Nevarez SURGICAL ORDERABLES * PT-INR (09/01/2018 11:40 AM CDT) INR 1.0 [facility] Comment: Reference Range 0.9-1.1 Moderate-intensity Warfarin Therapy 2.0-3.0 Higher-intensity Warfarin Therapy 3.0-4.0 PT 10.1 9.0 - 11.5 sec [facility] Comment: For more information on this test, go to: [email or web address] REPORT COMMENT: FASTING:NO Test Performed at: [facility] [address] [place] [address] DOLLY SCOTT DO,MPH Blood BLOOD SPECIMEN / Unknown 09/01/2018 11:40 AM CDT 09/01/2018 11:41 AM CDT Doug Toney MD LAB - COAGULAT ION ORDERABLES [facility] [address] [place] [address] * (ABNORMAL) CBC WITH DIFFERENTIAL (09/01/2018 11:40 AM CDT) Only the most recent of4 resultswithin the time period is included. White Blood Cell Count 6.7 3.8 - 10.8 Thousand/ uL [facility] RBC 3.73(L) 3.80 - 5.10 Million/u L [facility] Hemoglobin 12.4 11.7 - 15.5 g/dL [facility] Hematocrit 38.0 35.0 - 45.0 % [facility] MCV 101.9(H) 80.0 - 100.0 fL [facility] MCH 33.2(H) 27.0 - 33.0 pg [facility] MCHC 32.6 32.0 - 36.0 g/dL [facility] RDW 12.0 11.0 - 15.0 % [facility] Platelet Count 177 140 - 400 Thousand/ uL [facility] MPV 10.7 7.5 - 12.5 fL [facility] Neutrophil Absolute 3933 1500 - 7800 cells/uL [facility] Lymphocytes Absolute 1950 850 - 3900 cells/uL [facility] Absolute Monocytes 610 200 - 950 cells/uL [facility] Eosinophils Absolute 168 15 - 500 cells/uL [facility] Basophils Absolute 40 0 - 200 cells/uL [facility] Granulocytes % 58.7 % [facility] Lymphocytes % 29.1 % [facility] Monocytes % 9.1 % [facility] Eosinophils % 2.5 % [facility] Basophils % 0.6 % [facility] Comment: Test Performed at: [facility] [id number] [place] [address] DOLLY SCOTT DO,MPH Blood BLOOD SPECIMEN / Unknown 09/01/2018 11:40 AM CDT 09/01/2018 11:41 AM CDT Doug Toney MD LAB - HEMATOLO GY ORDERABLES Performing Organization Address City/State/[facility] Co de Phone Number [facility] [address] [place] [address] * COMPREHENSIVE METABOLIC PANEL (09/01/2018 11:40 AM CDT) Only the most recent of3 resultswithin the time period is included. Pathologist [facility] Glucose 91 65 - 139 mg/dL [facility] Comment: Non-fasting reference interval BUN 11 7 - 25 mg/dL [facility] Creatinine 0.67 0.50 - 0.99 mg/dL [facility] Comment: For patients >49 years of age, the reference limit for Creatinine is approximately 13% higher for people identified as -[place]. eGFR by MDRD 94 > OR = 60 mL/min/1 .73m2 [facility] eGFR by MDRD 108 > OR = 60 mL/min/1 .73m2 [facility] BUN/Creatinine Ratio NOT APPLICABLE 6 - 22 (calc) [facility] Sodium 138 135 - 146 mmol/L [facility] Potassium 4.3 3.5 - 5.3 mmol/L [facility] Chloride 104 98 - 110 mmol/L [facility] CO2 28 20 - 32 mmol/L [facility] Calcium 9.6 8.6 - 10.4 mg/dL [facility] Protein Total 6.9 6.1 - 8.1 g/dL [facility] Albumin 4.4 3.6 - 5.1 g/dL [facility] Globulin Total 2.5 1.9 - 3.7 g/dL (calc) [facility] Albumin/Globulin Ratio 1.8 1.0 - 2.5 (calc) [facility] Bilirubin Total 0.4 0.2 - 1.2 mg/dL [facility] Alkaline Phosphatase 66 33 - 130 U/L [facility] AST 24 10 - 35 U/L [facility] ALT 24 6 - 29 U/L [facility] Comment: Test Performed at: [facility] [address] [place] [address] DOLLY SCOTT DO,MPH Blood BLOOD SPECIMEN / Unknown 09/01/2018 11:40 AM CDT 09/01/2018 11:41 AM CDT Doug Toney MD LAB - CHEMISTR Y ORDERABLES [facility] [address] [place] [address] * PT-INR [facility] (07/13/2018 4:17 PM CDT) Only the most recent of2 resultswithin the time period is included. PT 12.1 12.1 - 14.8 Seconds 07/13/2018 5:48 PM CDT [facility] INR 0.9 See Comment 07/13/2018 5:48 PM CDT [facility] Comment: The suggested therapeutic range for standard coumadin (warfarin) therapy is an INR of 2.0-3.0. For high-risk patients (Mechanical Mitral Valve Prosthesis, etc.), the suggested prophylactic therapeutic range is an INR of 2.5-3.5. Blood BLOOD SPECIMEN / Unknown Lab Venipuncture / Unknown 07/13/2018 4:17 PM CDT 07/13/2018 5:18 PM CDT Doug Toney MD LAB - COAGULAT ION ORDERABLES [address] [phone] * CYTOGENETICS CANCER PANEL (12/17/2014 3:51 PM WATER SPONGER) Indication for Study Anemia / MDS FISH MDS panel requested by physician 7:34 AM [facility] CYTOGENOMIC [facility] Results Cytogenetics Fluorescence In-Situ Hybridization (FISH): Analysis of 200 interphase cells hybridized with specific labeled fluorescent probes*: break apart EVI1 probes* directed onto 3q26.2, dual labeled probes* D5S23/L8F322 directed onto 5p15.2/5q31, dual labeled probes* CEP7/R0F045 directed onto 7 cent/7q31, dual labeled CEP8/[id number] directed onto 8cent/20q11.2 and dual break apart probes* FOXO1 directed onto 13q14 showed the following results: nuc asia(EVI1x2)[194/200] ,(D5S23,K5L180,EGR1) x2[189/200],(D7Z1,D7 S486)x2[198/200],(CE P8,H54K217)x2[189/20 0],(WVBR8g2)[193/200 ] Normal Note: The remaining percentage of cells have signals that either represent G1 cells or endoreduplicated cells of no significance. Chromosome analysis is in progress. ====== Analysis and count of 20 cells (8 cells karyotyped, GTL-banding) from 24-hour unstimulated and 72-hour Interleukin stimulated bone marrow cultures showed the following chromosome pattern: 46,XX[20] 5 7:34 AM [facility] CYTOGENOMIC [facility] Interpretation FISH was negative for all the probes of MDS panel. 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 5 7:34 AM [facility] CYTOGENOMIC [facility] Preliminary result electronically signed by Sandra Pineda, PhD SASHA on 12/20/2014 at 7:24 AM Disclaimer *This test was developed, and its performance characteristics determined by [facility] Cytogenetics Laboratory as required by CLIA [...] pathology with cytogenetic findings. 5 7:34 AM [facility] CYTOGENOMIC [facility] Client Information [facility] - 5 7:34 AM [facility] CYTOGENOMIC [facility] Other BONE MARROW SPECIMEN / Unknown 12/17/2014 3:51 PM WATER SPONGER 12/17/2014 3:50 PM WATER SPONGER Liu Bean MD LAB - PATHOLOGY/CY TOLOGY ORDERABLES [facility] CYTOGENOMIC [facility] [address] [place] [address] * ROCAEL BLOOD SCREEN (06/17/2014 5:09 PM CDT) Pathologist [facility] ROCAEL None Detected None Detected [facility] Venous blood specimen (specimen) 06/17/2014 5:09 PM CDT 06/17/2014 5:35 PM CDT Kanu Rivera MD LAB - CHEMISTRY [facility]ANDON TAYLOR Performing Organization Address [facility] Co de Phone Number [address] [phone] * MITOCHONDRIAL ANTIBODY SCREEN (06/17/2014 5:09 PM CDT) [facility] Mitochondrial M2 Antibody 6.9 0.0 - 20.0 Units [facility] Comment: Mitochondrial M2 Antibody Numeric Result Interpretation: <20.1 Units: Negative 20.1 - 24.9 Units: Equivocal >24.9 Units: Positive Blood specimen (specimen) BLOOD SPECIMEN / Unknown 06/17/2014 5:09 PM CDT 06/17/2014 5:35 PM CDT Kanu Rivera MD LAB - CHEMISTRY BRANDON TAYLOR Performing Organization Address [facility] Co de Phone Number [address] [phone] * [id number] BLOOD PHENOTYPING PANEL (06/17/2014 5:09 PM CDT) Pathologist [facility] Zxius-8-Telsfoowpi n 134 90 - 200 mg/dL [facility] (BEAKER) Phenotype (PI) MM [facility] (BEAKER) Comment: Phenotype Population A-1-AT Concentration* Incidence % % of MM Ref. Range Mean MM 86.5% 100% (90-200) 145 MS 8.0% 81% (73-162) 118 MZ 3.9% 60% (54-120) 87 FM 0.4% 97% (87-194) 141 SZ 0.3% 39% (35- 78) 57 SS 0.1% 71% (64-142) 103 ZZ 0.05% 7% ( 6- 14) 10 FS 0.05% 66% (59-132) 96 FZ Unknown Unknown FF Unknown Unknown *A-1-AT concentration in the homozygous MM phenotype is taken as the reference normal. Deficiency in phenotypes is reported relative to this reference. Blood specimen (specimen) BLOOD SPECIMEN / Unknown 06/17/2014 5:09 PM CDT 06/17/2014 5:35 PM CDT Narrative [facility] ([facility]) - 06/20/2014 5:14 PM CDT Performed at: 01 - [address] [id number] [address] Glassware Replacer: Meliton Henderson PhD, Phone: [phone] Performed at: [address] [id number] [address] [employer] Re[employer]acer: Dolly Olivares MD, Phone: [phone] Kanu Rivera MD LAB - CHEMISTRY BRADNON TAYLOR [facility] * HEPATITIS C GENOTYPE (06/17/2014 5:09 PM CDT) Hepatitis C Genotype TNP Comment [facility] ([facility] Comment: Patient's specimen has been determined to have INSUFFICIENT Hepatitis C Virus RNA to obtain Genotyping results. The Genotype assay should only be used for known HCV Positive patients with HCV RNA levels above 600 IU/mL. This test was developed and its performance characteristics determined by [facility]. It has not been cleared or approved by the U.S. Food and Drug Administration. The FDA has determined that such clearance or approval is not necessary. This test is used for clinical purposes. It should not be regarded as investigational or for research. Blood specimen (specimen) 06/17/2014 5:09 PM CDT 06/17/2014 5:35 PM CDT Narrative [facility]) - 06/24/2014 3:16 PM CDT Performed at: - [address] [id number] [address] [employer]ware Replacer: Dolly Olivares MD, Phone: [phone] Kanu Rivera MD LAB - CHEMISTRY BRANDON TAYLOR [facility] ([facility]) * HEPATITIS C RNA QUANTITATIVE PCR (06/17/2014 5:09 PM CDT) [facility] Hepatitis C Virus RNA PCR Specimen: 1 ml Serum Reference: [id number] Test: Hepatitis C RT-PCR (Quantitative) RESULT Not Detected Reference Range Not Detected INTERPRETATION The quantitative Hepatitis C viral RNA RT-PCR determination was performed on a serum sample and is reported in IU/ml. Hepatitis C viral RNA was not detected. COMMENT The Hepatitis C (HCV) viral RNA analysis utilized a serum sample, real-time [employer] PCR, and is reported as Not Detected/Detected (<50)/Quantity (IU/ml) or >35,000,000 IU/ml. The analytical sensitivity of the assay is 7 IU/ml (95% of samples with this HCV RNA level were detected). Values less than 7 IU/ml are reported as Not Detected (<7 IU/ml); values greater than 7 IU/ml and less than 50 IU/ml are reported as Detected (<50). The linear range is from 50 IU/ml to 35,000,000 IU/ml. Values greater than 35,000,000 IU/ml are reported as >35,000,000 IU/ml. The detection/quantita tion of HCV RNA in serum or plasma is based on the isolation of HCV RNA with reverse manager [employer] partnerships of genomic HCV RNA followed by real-time PCR in the presence of a reference standard RNA. The standard ensures that RNA was isolated, that no general significant inhibitors of the RT-PCR process were present. This test was developed and its performance characteristics determined by the [facility] at [facility]. It has not been cleared or approved by the U.S. Food and Drug Administration. The FDA has determined that such clearance or approval is not necessary. This test is used for clinical purposes. It should not be regarded as investigational or for research. This laboratory is certified under the Clinical Laboratory Improvement Amendments of 1988 (CLIA-88) as qualified to perform high complexity clinical laboratory testing. Test performed at [facility], [address] [place] [address] This case has been personally reviewed and interpreted by the attending (teaching) pathologist. Final Diagnosis performed by Cam Bower PHD. Electronically signed 06/18/2014 [facility] ([facility]) Blood specimen (specimen) BLOOD SPECIMEN / Unknown 06/17/2014 5:09 PM CDT 06/17/2014 5:35 PM CDT Kanu Rivera MD LAB - CHEMISTRY BRANDON TAYLOR [facility] ([facility]) * [id number] BLOOD (06/17/2014 5:09 PM CDT) Rhqrz-4-Woppwh ypsin 133 90 - 200 mg/dL [facility] Blood specimen (specimen) BLOOD SPECIMEN / Unknown 06/17/2014 5:09 PM CDT 06/17/2014 5:35 PM CDT Kanu Rivera MD LAB - CHEMISTRY BRANDON TAYLOR [address] [phone] * SMOOTH MUSCLE ANTIBODY (06/17/2014 5:09 PM CDT) F-Actin Antibody IgG 14.6 0.0 - 19.9 Units [facility] Comment: F-Actin Antibody Numeric Result Interpretation: <20.0 Units: Negative 20.0 - 30.0 Units: Weak Positive >30.0 Units: Moderate to Strong Positive Blood specimen (specimen) BLOOD SPECIMEN / Unknown 06/17/2014 5:09 PM CDT 06/17/2014 5:35 PM CDT Kanu Rivera MD LAB - SEROLOGY ORDER KIA [address] [phone] * HEPATITIS B SURFACE ANTIBODY (06/17/2014 5:09 PM CDT) Hepatitis B Virus Surface Antibody Non-react brandon Non-react brandon [facility] Comment: < 8 mIU/mL Hepatitis B surface Antibody (HBsAb). Nonreactive for HBsAb - individual is considered not immune to Hepatitis B Virus infection. Hepatitis B Surface Antibody Quantitative 0.0 <8.0 mIU/mL [facility] Comment: Hepatitis B Surface Antibody Numeric Result Interpretation: Nonreactive: <8.0 mIU/mL Indeterminate: 8.0 - 12.0 mIU/mL Reactive: >12.0 mIU/mL Blood specimen (specimen) BLOOD SPECIMEN / Unknown 06/17/2014 5:09 PM CDT 06/17/2014 5:35 PM CDT Kanu Rivera MD LAB - CHEMISTRY BRANDON TAYLOR Performing Organization Address City/[facility]/ZIP Co de Phone Number [address] [phone] * HEPATITIS B CORE ANTIBODY (06/17/2014 5:09 PM CDT) HBc Antibody Total Non-reacti ve Non-reacti ve [facility] Blood specimen (specimen) BLOOD SPECIMEN / Unknown 06/17/2014 5:09 PM CDT 06/17/2014 5:35 PM CDT Kanu Rivera MD LAB - CHEMISTRY BRANDON TAYLOR [address] [phone] * HEPATITIS B SURFACE ANTIGEN W RFLX CONFIRMATION (06/17/2014 5:09 PM CDT) Hepatitis B Virus Surface Antigen Non-reacti ve Non-reacti ve [facility] Blood specimen (specimen) BLOOD SPECIMEN / Unknown 06/17/2014 5:09 PM CDT 06/17/2014 5:35 PM CDT Kanu Rivera MD LAB - CHEMISTRY BRANDON TAYLOR [address] [phone] * HEPATITIS C ANTIBODY (06/17/2014 5:09 PM CDT) Pathologist [facility] Hepatitis C Antibody Non-react brandon Non-reac tive [facility] Comment: Hepatitis C Antibody screen indicates no [...] Kanu Rivera MD LAB - CHEMISTRY BRANDON TAYLOR Performing Organization Address [facility]/ZIP Co de Phone Number [address] [phone] * (ABNORMAL) HEPATITIS A ANTIBODY (06/17/2014 5:09 PM CDT) [facility] Hepatitis A Virus Antibody Total Positive(A ) Negative [facility] ([facility]) Blood specimen (specimen) 06/17/2014 5:09 PM CDT 06/17/2014 5:35 PM CDT Narrative [facility] ([facility]) - 06/19/2014 6:17 AM CDT Performed at: 01 - [facility] [id number] [address] [employer]ware Replacer: Meliton Henderson PhD, Phone: [phone] Kanu Rivera MD LAB - CHEMISTRY BRANDON TAYLOR [facility] (BEAKER) * FERRITIN (06/17/2014 5:09 PM CDT) Ferritin 146 13 - 204 ng/mL [facility] Blood specimen (specimen) BLOOD SPECIMEN / Unknown 06/17/2014 5:09 PM CDT 06/17/2014 5:35 PM CDT Kanu Rivera MD LAB - CHEMISTRY BRANDON TAYLOR Performing Organization Address City/State/[facility] Co de Phone Number [facility] [address] [place] [address] * XR WRIST 3+ VW RIGHT (07/11/2012 9:57 AM CDT) Anatomical Region Laterality Modality Wrist / Hand Radiographic Nicolasa ging 07/11/2012 10:1 8 AM CDT Narrative 07/11/2012 11:24 AM CDT THREE VIEWS RIGHT WRIST INDICATION: Right wrist pain. FINDINGS: There is osteopenia. There is mild bony hypertrophy at the 1st carpometacarpal joint. There is no acute fracture. There are no erosions or subluxations. Procedure Note Tyshawn Boo MD - 07/11/2012 THREE VIEWS RIGHT WRIST INDICATION: Right wrist pain. FINDINGS: There is osteopenia. There is mild bony hypertrophy at the 1st carpometacarpal joint. There is no acute fracture. There are no erosions or subluxations. Sherry Moura MD [facility]ST[facility] Care Teams Music Therapy Teacher Relationship Specialty Start Date End Date Anthony Strong MD [address] [place] [address] PCP - General Family Medicine 07/11/12
--- OUTSIDE RECORDS SUMMARY | 2024-04-17 18:02 | XMS_ITS | Clinical Summary ---
Author Organization [facility] Posterous Address [address] [place] [address] Care Team Providers Care Bariatric Physician Name Role Phone Anthony Strong MD Primary Care Provider [phone] Source Comments [facility],non-owned Affiliates and Associated Physician Practices is amultiple site organization consisting of ambulatory clinics and hospital sitesin [place], [place], [place] and [place]. This disclosure is being madepursuant to the Care Everywhere program and may not contain all information available regarding this patient. Last updated 17.[facility]ous Allergies Active Allergy Reactions Criticality Noted Date [...] fluticasone propionate (FLONASE) 50 MCG/ACT nasal spray [place] 2 sprays into each nostril once daily [...] TDAP (7yrs+) 11/30/2018 ZOSTER VACCINE, LIVE 12/30/2015 Family History Medical History Relation Name Comments Hypertension Father Cancer - Skin, Melanoma Maternal Grandfather CVA Mother Cancer - Other Sister UNKNOWN ORIGI N Relation Name Status Comments Father Maternal Grandfather Mother Sister Social History Tobacco Use Types Packs/Day Years [...] Mass Index 21.46 11/03/2018 11:57 AM CDT Plan of Treatment Health Maintenance Due Date Last Done Comments BONE DENSITY TESTING 1955 COLOGUARD (AGES 45-75) - COLON CA SCREENING 1954 COLON MONITORING 1954 COLONOSCOPY - COLON CA SCREENING 1954 CT COLONOGRAPHY - COLON CA SCREENING 1954 Colorectal Cancer Screening 1954 FIT - COLON CA SCREENING 1954 FLEX SIG - COLON CA SCREENING 1954 LIPID TESTING 1954 MAMMOGRAM 1955 MEDICARE AWV 12 MONTHS 1954 PNEUMOCOCCAL VACCINE 50+ (1 of 2 - PCV) 1973 ZOSTER VACCINE (2 of 3) 02/24/2016 12/30/2015 COVID-19 VACCINE ( - season) 2023 INFLUENZA VACCINE (#1) 2023 9, 12/08/2017, 12/30/2015 DEPRESSION SCREENING 02/08/2024 DTAP/TDAP/TD VACCINES (2 - Td or Tdap) 11/30/2028 11/30/2018 Respiratory Syncytial Virus (RSV) Vaccine Pt: or over 60 yrs (1 - 1-dose 75+ series) 2029 HEPATITIS C SCREENING Completed 07/23/2014 , 06/17/2014, 06/17/2014, Additional history exists HEPATITIS B VACCINE Aged Out No longe r eligible based on patient's age to complete this topic HIB VACCINE Aged Out No longer eligi ble based on patient's age to complete this topic HPV VACCINE Aged Out No longer eligi ble based on patient's age to complete this topic MENINGOCOCCAL (Group B) VACCINE Aged Out No longer eligible based on patient's age to complete this topic MENINGOCOCCAL VACCINE Aged Out No yasmeen mario eligible based on patient's age to complete this topic Procedures Procedure Name Priority Date/Time Associated Diagnosis Comments HEPATITIS C ANTIBODY Routine 06/17/2014 5:09 PM CDT from Last 3 Months or Most Recently Relevant to Health Maintenance Results * HEPATITIS C ANTIBODY (06/17/2014 5:09 PM CDT) Pathologist [facility] Hepatitis C Antibody Non-react [facility] Comment: Hepatitis C Antibody screen indicates no [...] LAB - CHEMISTRY BRANDON [place]anan Organization Address City/State/ZIP Co de Phone Number [facility] [address] [phone] from Last 3 Months or Most Recently Relevant to Health Maintenance Care Teams Bariatric Physician Relationship Specialty Start Date End Date Anthony Strong MD [address] [place] [address] PCP - General Family Medicine 07/11/12
== END 2024-04-17 16:13 | disposition home or self-care (01) ==
PROVIDERS: PCP Family Medicine; Visit Provider Obstetrics & Gynecology
DX: Z12.31 Encounter for screening mammogram for malignant neoplasm of breast (principal)
CPT/HCPCS: 77063; 77067

== ENCOUNTER 2024-08-04 07:09 | Outpatient (CLI) | payer MEDICARE, OTHER, SELFPAY ==
[2024-08-04 07:32] LABS: Basophils Absolute Auto 0.1 K/mm3 (0.0-0.1); Basophils Percent Auto 1.6 % (0.2-1.2); Eosinophils Absolute Auto 0.2 K/mm3 (0-0.3); Hematocrit 36.1 % (37.0-47.0); Hemoglobin 12.2 g/dL (12.0-15.0); Immature Granulocyte Absolute 0.01 K/mm3 (0.00-0.031); Immature Granulocyte Percent A 0.2 % (0-0.5); Lymphocytes Absolute Auto 2.03 K/mm3 (0.9-3.2); Lymphocytes Percent Auto 40.5 % (18.3-44.2); Mean Corpuscular HGB Conc 33.8 g/dl (32-36); Mean Corpuscular Hemoglobin 32.4 pg (26-34); Mean Platelet Volume 10.3 fl (7.4-10.4); Monocytes Absolute Auto 0.6 K/mm3 (0.1-0.6); Monocytes Percent Auto 11.6 % (2.6-8.5); Neutrophils Absolute Auto 2.2 K/mm3 (1.3-6.7); Neutrophils Percent Auto 43.1 % (45.5-73.1); Platelet Count Result 229 k/mm3 (150-375); Red Blood Count 3.76 M/mm3 (4.2-5.4); Red Cell Distribution Width 12.2 % (11.5-14.5)
[2024-08-04 07:40] LABS: Alanine Aminotransferase 35 U/L (6-35); Albumin Level 4.3 g/dL (3.5-5.1); Alkaline Phosphatase 59 U/L (38-126); Anion Gap 10 mmol/L (4-12); Aspartate Amino Transferase 39 U/L (14-36); Bilirubin,Total 0.3 mg/dL (0.2-1.3); Blood Urea Nitrogen 16 mg/dL (7-17); Calcium 9.6 mg/dL (8.4-10.2); Carbon Dioxide 27 mmol/L (22-30); Chloride 102 mmol/L (98-107); Cholesterol 156 mg/dL (0-200); Estimated Glomerular Filt Rate > 60; Glucose 101 mg/dL (65-110); HDL Direct 52 mg/dL; Potassium 4.3 mmol/L (3.4-5.0); Sodium 139 mmol/L (137-145); Total Protein 7.7 g/dL (6.3-8.2); Triglycerides 80 mg/dL (<150)
[2024-08-04 07:51] LABS: LDL Cholesterol Direct 66 mg/dL
== END 2024-08-04 07:10 | disposition home or self-care (01) ==
PROVIDERS: PCP Family Medicine; Visit Provider Physician Assistant Medical
DX: J44.9 Chronic obstructive pulmonary disease, unspecified (principal); I10 Essential (primary) hypertension; E78.2 Mixed hyperlipidemia; E03.9 Hypothyroidism, unspecified
CPT/HCPCS: 36415; 80053; 80061; 84443; 85025

== ENCOUNTER 2024-08-27 15:33 | Outpatient (CLI) | payer MEDICARE, SELFPAY ==
--- NOTE | ~2024-08-27 | CT_ITS ---
EXAMINATION: CT lung screening DATE: 08/27/2024 15:53 INDICATION: Personal history of nicotine dependence TECHNIQUE: Computed tomography (CT) of the chest was performed without intravenous contrast. The dose -length product was 69.99 mGy-cm. Automated exposure control and iterative reconstruction technique w ere employed. COMPARISON: None FINDINGS: Heart size normal. No thoracic lymphadenopathy. No significant pleural or pericardial effus ion. There is atherosclerosis. No soft tissue abnormality. Upper abdomen is unremarkable. There is a calcified granuloma of the right upper lobe. There are small right upper lobe nodules measuring 2 mm or less. There are calcified granulomas in the left lower lung. No pneumothorax. No endobronchial les ions. No focal airspace consolidation. Mild thoracic spondylosis. IMPRESSION: 1. Lung-RADS category 2: Benign appearance or behavior. Continue annual screening with noncontrast lo w-dose chest CT in 12 months. Reviewed, dictated and finalized at location A. IMPRESSION: 1. Lung-RADS category 2: Benign appearance or behavior. Continue annual screeni ng with noncontrast low-dose chest CT in 12 months.
--- NOTE | ~2024-08-27 | US_ITS ---
US soft tissue head and neck 08/27/2024 16:26 Indication: Localized swelling. Mass. Procedure: High-resolution ultrasound of the supraclavicular location in the area palpable concern Comparison: No prior studies for comparison. Findings: Normal heterogeneous soft tissues are identified in the area of concern. No discrete mass o r fluid collection is identified. No abnormal vascularity. There is an area that was measured on the ultrasound images may represent normal musculature measuring 4.4 x 1.8 x 3.7 cm. Impression: 1: Measured area by ultrasound likely corresponds to normal musculature. No definite mass or fluid co llection is identified. Recommend correlation with CT with contrast for further assessment. Reviewed, dictated and finalized at location B. Impression: 1: Measured area by ultrasound likely corresponds to normal musculature. No def inite mass or fluid collection is identified. Recommend correlation with CT wit h contrast for further assessment.
--- OUTSIDE RECORDS SUMMARY | 2024-08-27 15:37 | XMS_ITS | Clinical Summary ---
Author Organization [facility] Address [address] [place] [address] Care Team Providers Care Fresh Foods Technician Name Role Phone Anthony Strong MD Primary Care Provider [phone] Source Comments [facility],non-owned Affiliates and Associated Physician Practices is amultiple site organization consisting of ambulatory clinics and hospital sitesin [place], [place], [place] and [place]. This disclosure is being madepursuant to the Care Everywhere program and may not contain all information available regarding this patient. Last updated 17.[facility] Allergies Active Allergy Reactions Criticality Noted Date Comments Hydromorphone Itching 10/24/2018 Tree Nuts Anaphylaxis High 10/12/2016 Medications * Be aware that medications may not be up to date on this document. Alwaysverify current medications with the patient. levothyroxine (SYNTHROID) 50 MCG tablet Take 50 [...] fluticasone propionate (FLONASE) 50 MCG/ACT nasal spray [place] 2 sprays into each nostril once daily Active ALPRAZolam (XANAX PO) Take by mouth as needed Active Active Problems Problem Noted Date Diagnosed Date Elevated liver enzymes 08/30/2018 Overview (09/04/2018): 09/04/18 Fibroscan CAP 244, E 8.9 kPa Immunizations Immunization Administration Dates Next Due FLU VACCINE QUAD [...] drink = 0.6 oz pu re alcohol) Comments Unknown Sex and Gender Information Value Date Recorded Sex Assigned at Not on file Legal Sex Female 9:38 AM CDT Gender Identity Not on file Sexual [...] 11:26 AM CDT Height 162.6 cm (5' 4) 11/03/2018 11:57 AM CDT Body Mass Index [...] SCREENING 1954 LIPID TESTING 1954 MAMMOGRAM 1954 PNEUMOCOCCAL VACCINE 50+ (1 of 1 - PCV) 2004 ZOSTER VACCINE (2 of 3) 02/24/2016 12/30/2015 COVID-19 VACCINE (1 - 2023- season) 2023 DEPRESSION SCREENING 02/08/2024 INFLUENZA VACCINE (#1) 2024 9, 12/08/2017, 12/30/2015 DTAP/TDAP/TD VACCINES (2 - Td or Tdap) [...] complete this topic MENINGOCOCCAL (Group B) VACCINE SHARED DECISION-MAKING Aged Out No longer eligible based on patient's age to complete this topic MENINGOCOCCAL GROUPS A/C/Y/W VACCINE Aged Out No longer eligible based on patient's age to complete this topic Procedures Procedure Name Priority Date/Time Associated Diagnosis Comments HEPATITIS C ANTIBODY Routine 06/17/2014 5:09 PM CDT from Last 3 Months or Most Recently Relevant to Health Maintenance Results * HEPATITIS C ANTIBODY (06/17/2014 5:09 PM CDT) Hepatitis C Antibody Non-react [facility] Comment: Hepatitis C Antibody screen indicates no [...] CDT Kanu Rivera MD LAB - CHEMISTRY ORDERABLES Justina hua Result [address] [phone] from Last 3 Months or Most Recently Relevant to Health Maintenance Insurance [email or web address] MEDICARE [employer] ANTHEM Care Teams Fresh Foods Technician Relationship Specialty Start Date End Date Anthony Strong MD [address] [place] [address] PCP - General Family Medicine 07/11/12
--- OUTSIDE RECORDS SUMMARY | 2024-08-27 15:37 | XMS_ITS | Clinical Summary ---
Author Organization [facility] Address [address] [place] [address] Care Team Providers Care Wireworker Name Role Phone Unavailable Primary Care Provider [...] 1 - Tdap) 1973 Mammogram Screening 1994 Pneumococcal Vaccine: 50+ Ye ars (1 of 1 - PCV) 2004 Zoster Vaccines (1 of 2) 2004 Dexa Scan (General) 11/23/2019 COVID-19 Vaccine ( - 2023-2 5 season) 2023 RSV Immunization or 60+ Years (1 [...]
--- OUTSIDE RECORDS SUMMARY | 2024-08-27 15:37 | XMS_ITS | Encounter Summary ---
Author Organization [facility] Address [address] [facility] [place] [address] Care Team Providers Care Tc Operator Name Role Phone Anthony Strong MD Primary Care Provider [phone] Encounter Details Date Type Department Care Team (Latest Contact Info) Description 12/17/2014 Lab Requisition [facility] - Lab Cytogenetics [address] [place] [address] Liu Bean MD [address] [place] [address] Myelodysplastic syndrome Social History Tobacco Use Types Packs/Day Years [...] CYTOGENETICS CANCER PANEL Routine 12/17/2014 3:51 PM STATISTICAL MACHINE MECHANIC Myelodysplastic syndrome documented in this encounter Results * CYTOGENETICS CANCER PANEL (12/17/2014 3:51 PM STATISTICAL MACHINE MECHANIC) Indication for Study Anemia / MDS FISH MDS panel requested by physician 5 7:34 AM STATISTICAL MACHINE MECHANIC [facility] CYTOGENOMIC LAB Results Cytogenetics Fluorescence In-Situ Hybridization (FISH): Analysis of 200 interphase cells hybridized with specific labeled fluorescent probes*: break apart EVI1 probes* directed onto 3q26.2, dual labeled probes* D5S23/T5H249 directed onto 5p15.2/5q31, dual labeled probes* CEP7/Y8N952 directed onto 7 cent/7q31, dual labeled CEP8/N31I589 directed onto 8cent/20q11.2 and dual break apart probes* FOXO1 directed onto 13q14 showed the following results: nuc asia(EVI1x2)[194/200] ,(D5S23,K2U529,EGR1) x2[189/200],(D7Z1,D7 S486)x2[198/200],(CE P8,R74W318)x2[189/20 0],(MCPR4m8)[193/200 ] Normal Note: The remaining percentage of cells have signals that either represent G1 cells or endoreduplicated cells of no significance. Chromosome analysis is in progress. ====== Analysis and count of 20 cells (8 cells karyotyped, GTL-banding) from 24-hour unstimulated and 72-hour Interleukin stimulated bone marrow cultures showed the following chromosome pattern: 46,XX[20] 5 7:34 AM [facility]OMIC LAB Interpretation FISH was negative for all the probes of MDS panel. 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 5 7:34 AM [facility] CYTOGENOMIC LAB at 0734 STATISTICAL MACHINE MECHANIC Preliminary result electronically signed by Sandra Pineda, PhD ABMG on 12/20/2014 at 0724 STATISTICAL MACHINE MECHANIC Disclaimer *This test was developed, and its performance characteristics determined by [facility] Molecular Cytogenetics Laboratory as required by [...] pathology with cytogenetic findings. 5 7:34 AM [facility]OMIC LAB Client Information [facility] - 5 7:34 AM [facility]GENOMIC LAB Other BONE MARROW SPECIMEN / Unknown 12/17/2014 3:51 PM STATISTICAL MACHINE MECHANIC 12/17/2014 3:50 PM [facility] us Liu Bean MD LAB - PATHOLOGY/CYTOLOGY O RDERABLES Final Result [facility] MOLECULAR CYTOGENOMIC LAB [address] [place] [address] documented in this encounter Visit Diagnoses Diagnosis Myelodysplastic syndrome (HCC) Myelodysplastic syndrome, unspecified documented in this encounter Care Teams Tc Operator Relationship Specialty Start Date End Date Anthony Strong MD [address] [place] [address] PCP - General Family Medicine 07/11/12 documented as of this encounter
== END 2024-08-27 15:34 | disposition home or self-care (01) ==
PROVIDERS: PCP Family Medicine; Visit Provider Physician Assistant Medical
DX: Z12.2 Encounter for screening for malignant neoplasm of respiratory organs (principal); Z87.891 Personal history of nicotine dependence; R22.2 Localized swelling, mass and lump, trunk
CPT/HCPCS: 71271; 76536

== ENCOUNTER 2024-09-11 09:14 | Outpatient (CLI) | payer MEDICARE, SELFPAY ==
--- NOTE | ~2024-09-11 | CT_ITS ---
EXAMINATION: CT soft tissue neck w con DATE: 09/11/2024 09:44 INDICATION: Right-sided swelling, mass. TECHNIQUE: Computed tomography (CT) of the neck was performed with 75 mL Omnipaque-350 intravenous co ntrast. Automated exposure control and iterative reconstruction technique were employed. The dose-margot gth product was 568.77 mGy-cm. COMPARISON: Ultrasound soft tissue head and neck 08/27/2024 FINDINGS: The thyroid gland is unremarkable. The submandibular and parotid glands are symmetric. There is n o cervical lymphadenopathy. There are no masses identified. The left vertebral artery takes its o rigin directly off the arch, a normal variant. The superior mediastinum is otherwise unremarkable. The airway is unremarkable. Parapharyngeal and pre-glottic fat planes are preserved. Unremarkable enhancing neck vessels. Bilateral lens replacements. Minimal left mastoid fluid, mild right maxil earlene sinus mucosal thickening, partial right ethmoid opacification, the remaining aerated spaces are clear. The visualized lung parenchyma is clear. There is cervical spondylosis. IMPRESSION: Unremarkable CT soft tissue neck findings. No definite mass identified. Reviewed, dictated and finalized at location K.
--- OUTSIDE RECORDS SUMMARY | 2024-09-11 09:35 | XMS_ITS | Clinical Summary ---
Author Organization [facility] Address [address] [facility] [place] [address] Care Team Providers Care Slate Cutter Operator Name Role Phone Anthony Strong MD Primary Care Provider [phone] Source Comments [facility],non-owned Affiliates and Associated Physician Practices is amultiple site organization consisting of ambulatory clinics and hospital sitesin [place], [place] and [place]. This disclosure is being madepursuant to the Care Everywhere program and may not contain all information available regarding this patient. Last updated 17.[facility] Allergies Active Allergy Reactions Criticality Noted Date [...] fluticasone propionate (FLONASE) 50 MCG/ACT nasal spray [place] 2 sprays into each nostril once daily [...] 5:09 PM CDT) Hepatitis C Antibody Non-react [facility] Comment: Hepatitis C Antibody screen indicates [...] LAB - CHEMISTRY ORDERABLES Justina hua Result [address] [phone] from Last 3 Months or Most Recently Relevant to Health Maintenance Insurance [employer] MEDICARE [employer] ANTHEM Care Teams Slate Cutter Operator Relationship Specialty Start Date End Date Anthony Strong MD [address] [place] [address] PCP - General Family Medicine 07/11/12
--- OUTSIDE RECORDS SUMMARY | 2024-09-11 09:35 | XMS_ITS | Encounter Summary ---
Author Organization [facility] Address [address] [facility] [place] [address] Care Team Providers Care Fine Artist Name Role Phone Anthony Strong MD Primary Care Provider [phone] Encounter Details Date Type Department Care Team (Latest Contact Info) Description 12/17/2014 Lab Requisition [facility] - Lab Cytogenetics [address] [place] [address] Liu Bean MD [address] [place] [address] Myelodysplastic syndrome Social History Tobacco Use [...] CYTOGENETICS CANCER PANEL Routine 12/17/2014 3:51 PM COMMUNICATION SPECIALIST Myelodysplastic syndrome documented in this encounter Results * CYTOGENETICS CANCER PANEL (12/17/2014 3:51 PM COMMUNICATION SPECIALIST) Indication for Study Anemia / MDS FISH MDS panel requested by physician 5 7:34 AM COMMUNICATION SPECIALIST [facility] MOLECULAR CYTOGENOMIC LAB Results Cytogenetics Fluorescence In-Situ Hybridization (FISH): Analysis of 200 interphase cells hybridized with specific labeled fluorescent probes*: break apart EVI1 probes* directed onto 3q26.2, dual labeled probes* D5S23/C3C728 directed onto 5p15.2/5q31, dual labeled probes* CEP7/I3N874 directed onto 7 cent/7q31, dual labeled CEP8/B18O472 directed onto 8cent/20q11.2 and dual break apart probes* FOXO1 directed onto 13q14 showed the following results: nuc asia(EVI1x2)[194/200] ,(D5S23,V4R288,EGR1) x2[189/200],(D7Z1,D7 S486)x2[198/200],(CE P8,P35W443)x2[189/20 0],(LNPY4l5)[193/200 ] Normal Note: The remaining percentage of cells have signals that either represent G1 cells or endoreduplicated cells of no significance. Chromosome analysis is in progress. ====== Analysis and count of 20 cells (8 cells karyotyped, GTL-banding) from 24-hour unstimulated and 72-hour Interleukin stimulated bone marrow cultures showed the following chromosome pattern: 46,XX[20] 5 7:34 AM [facility] MOLECULAR CYTOGENOMIC LAB Interpretation FISH was negative for all the probes of MDS panel. 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 5 7:34 AM [facility] MOLECULAR CYTOGENOMIC LAB at 0734 COMMUNICATION SPECIALIST Preliminary result electronically signed by Sandra Pineda, PhD ABMG on 12/20/2014 at 0724 COMMUNICATION SPECIALIST Disclaimer *This test was developed, and its performance characteristics determined by [facility] Molecular Cytogenetics Laboratory as required by [...] pathology with cytogenetic findings. 5 7:34 AM [facility] MOLECULAR CYTOGENOMIC LAB Client Information [facility] - 5 7:34 AM [facility] MOLECULAR CYTOGENOMIC LAB Other BONE MARROW SPECIMEN / Unknown 12/17/2014 3:51 PM COMMUNICATION SPECIALIST 12/17/2014 3:50 PM [facility] us Liu Bean MD LAB - PATHOLOGY/CYTOLOGY O RDERABLES Final Result [facility] MOLECULAR CYTOGENOMIC LAB [address] [place] [address] documented in this encounter Visit Diagnoses Diagnosis Myelodysplastic syndrome (HCC) Myelodysplastic syndrome, unspecified documented in this encounter Care Teams Fine Artist Relationship Specialty Start Date End Date Anthony Strong MD [address] [place] [address] PCP - General Family Medicine 07/11/12 documented as of this encounter
--- OUTSIDE RECORDS SUMMARY | 2024-09-11 09:35 | XMS_ITS | Clinical Summary ---
Author Organization [facility] Address [address] [place] [address] Care Team Providers Care Hat Stock Laminating Machine Operator Name Role Phone Unavailable Primary Care Provider [...] 2004 Dexa Scan (General) 11/23/2019 COVID-19 Vaccine (2023-2 5 season) 2023 RSV Immunization or 60+ [...]
[2024-09-11 09:39] LABS: Estimated Glomerular Filt Rate > 60
== END 2024-09-11 09:15 | disposition home or self-care (01) ==
PROVIDERS: PCP Family Medicine; Visit Provider Physician Assistant Medical
DX: R22.2 Localized swelling, mass and lump, trunk (principal); Z72.0 Tobacco use
CPT/HCPCS: 70491; Q9967

== ENCOUNTER 2025-01-02 13:29 | Outpatient (CLI) | payer MEDICARE, SELFPAY ==
--- NOTE | ~2025-01-02 | DEXA_ITS ---
Bone Density Report Name: KIM MORALES Age: 69 Sex: Female Ethnicity: White Date of : 1955 Indication: postmenopausal; screening for osteoporosis; height loss; Referring Provider: RODERICK MOSES Study: Bone densitometry was performed. Exam Date: January 02, 2025 Accession number: [id number] Bone Density: Region BMD T-score Z-score Classification AP Spine(L1-L4) 1.165 1.1 3.2 Normal Femoral Neck (Left) 0.706 -1.3 0.5 Osteopenia Total Hip (Left) 0.921 -0.2 1.3 Normal Femoral Neck (Right) 0.715 -1.2 0.6 Osteopenia Total Hip (Right) 0.878 -0.5 1.0 Normal Total Hip Mean 0.900 -0.4 1.2 Normal World Health Organization criteria for BMD impression classify patients as: Normal (T-score at or above -1.0), Osteopenia (T-score between -1.0 and -2.5), or Osteoporosis (T-score at or below -2.5). 10-year Fracture Risk(1): Major Osteoporotic Fracture 9.4% Hip Fracture 1.2% Reported Risk Factors: [place] (), Neck BMD=0.706, BMI=27.5 (1) FRAX(R) Version 3.08. Fracture probability calculated for an untreated patient. Fracture probability may be lower if the patient has received treatment. Previous Exams: Region Exam Age BMD T-score BMD Change BMD Change Date g/cm2 vs Baseline vs Previous AP Spine (L1-L4) 01/02/2025 69 1.165 1.1 -0.036 (-3.0%) -0.036 (-3.0%) 08/13/2021 65 1.201 1.4 Total Hip(Left) 01/02/2025 69 0.921 -0.2 0.098 (11.9%)* 0.098 (11.9%)* 08/13/2021 65 0.824 -1.0 Total Hip(Right) 01/02/2025 69 0.878 -0.5 0.033 (3.9%)* 0.033 (3.9%)* 08/13/2021 65 0.845 -0.8 *Denotes significance at 95% confidence level, LSC for AP Spine = 0.022 g/cm2, LSC for Total Hip = 0.027 g/cm2 Clinical Information Provided by Patient: Patient maximum height was 63.0 Menopause Age: 44 Drinks caffeinated beverages Onset of menses at age 13 Number of children 0 Impression: The patient has low bone mass, based on the Left Femoral Neck T-score. The patient has an estimated ten-year risk of hip fracture of 1.2% and an estimated ten-year risk of major fracture of 9.4%, based on the WHO FRAX algorithm. The BMD for the AP Spine (L1-L4) decreased, changing by -3.0% since the last DXA exam. Discussion: BONE DENSITY IS LOW AT ONE OR MORE SKELETAL SITES. This patient's lowest T-score is low at one or more skeletal sites. It meets the World Health Organization's (WHO) criteria for ?low bone mass? (T-score between -1.0 and -2.5). The patient's 10-year risk of fracture as calculated by FRAX is less than the threshold where pharmacological therapy is recommended by the National Osteoporosis Foundation (NOF). However, all treatment decisions require clinical judgment and consideration of individual patient factors, including patient preferences, comorbidities, previous drug use, risk factors not captured in the FRAX model (e.g., frailty, falls, vitamin D deficiency, increased bone turnover, interval significant decline in bone density) and possible under or overestimation of fracture risk by FRAX. The patient should follow a healthful lifestyle (good nutrition with adequate calcium and vitamin D, and appropriate weight-bearing exercise). Follow-Up: Consider repeating this study in 2 years to reassess this patient's status, or sooner if there is some new clinical indication. Reported by: MARIAM on 01/02/2025 2:18:00 PM. Reviewed, dictated and finalized at location A.
--- OUTSIDE RECORDS SUMMARY | 2025-01-02 13:32 | XMS_ITS | Encounter Summary ---
Author Organization [facility] Address [address] [place] [address] Care Team Providers Care Signal Inspector Name Role Phone Anthony Strong MD Primary Care Provider [phone] Encounter Details Date Type Department Care Team (Latest Contact Info) Description 12/17/2014 Lab Requisition [facility] - Lab Cytogenetics [address] [place] [address] Liu Bean MD [address] [place] [address] Myelodysplastic syndrome Social History Tobacco Use [...] CYTOGENETICS CANCER PANEL Routine 12/17/2014 3:51 PM TWISTER TENDER PAPER Myelodysplastic syndrome documented in this encounter Results * CYTOGENETICS CANCER PANEL (12/17/2014 3:51 PM TWISTER TENDER PAPER) Indication for Study Anemia / MDS FISH MDS panel requested by physician 5 7:34 AM TWISTER TENDER PAPER [facility] MOLECULAR CYTOGENOMIC LAB Results Cytogenetics Fluorescence In-Situ Hybridization (FISH): Analysis of 200 interphase cells hybridized with specific labeled fluorescent probes*: break apart EVI1 probes* directed onto 3q26.2, dual labeled probes* D5S23/H6N636 directed onto 5p15.2/5q31, dual labeled probes* CEP7/I5S158 directed onto 7 cent/7q31, dual labeled CEP8/D03I468 directed onto 8cent/20q11.2 and dual break apart probes* FOXO1 directed onto 13q14 showed the following results: nuc asia(EVI1x2)[194/200] ,(D5S23,L6B760,EGR1) x2[189/200],(D7Z1,D7 S486)x2[198/200],(CE P8,G52T483)x2[189/20 0],(JHHG5o0)[193/200 ] Normal Note: The remaining percentage of cells have signals that either represent G1 cells or endoreduplicated cells of no significance. Chromosome analysis is in progress. ====== Analysis and count of 20 cells (8 cells karyotyped, GTL-banding) from 24-hour unstimulated and 72-hour Interleukin stimulated bone marrow cultures showed the following chromosome pattern: 46,XX[20] 5 7:34 AM [facility] MOLECULAR CYTOGENOMIC LAB Interpretation FISH was negative for all the probes of MDS panel. 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 5 7:34 AM [facility] MOLECULAR CYTOGENOMIC LAB at 0734 TWISTER TENDER PAPER Preliminary result electronically signed by Sandra Pineda, PhD ABMG on 12/20/2014 at 0724 TWISTER TENDER PAPER Disclaimer *This test was developed, and its performance characteristics determined by [facility] Molecular Cytogenetics Laboratory as required [...] pathology with cytogenetic findings. 5 7:34 AM [facility] MOLECULAR CYTOGENOMIC LAB Client Information [facility] - 5 7:34 AM [facility] MOLECULAR CYTOGENOMIC LAB Other BONE MARROW SPECIMEN / Unknown 12/17/2014 3:51 PM TWISTER TENDER PAPER 12/17/2014 3:50 PM [facility] us Liu Bean MD LAB - PATHOLOGY/CYTOLOGY O RDERABLES Final Result [facility] MOLECULAR CYTOGENOMIC LAB [address] [place] [address] documented in this encounter Visit Diagnoses Diagnosis Myelodysplastic syndrome (HCC) Myelodysplastic syndrome, unspecified documented in this encounter Care Teams Signal Inspector Relationship Specialty Start Date End Date Anthony Strong MD [address] [place] [address] PCP - General Family Medicine 07/11/12 documented as of this encounter
--- OUTSIDE RECORDS SUMMARY | 2025-01-02 13:32 | XMS_ITS | Clinical Summary ---
Author Organization [facility] Address [address] [place] [address] Care Team Providers Care Public Health Microbiologist Name Role Phone Anthony Strong MD Primary Care Provider [phone] [facility],non-owned Affiliates and Associated Physician Practices is amultiple site organization consisting of ambulatory clinics and hospital sitesin [place], [place], [place] and [place]. This disclosure is being madepursuant to the Care Everywhere program and may not contain all information available regarding this patient. Last updated 17.[facility] Allergies Active Allergy Reactions Criticality Noted Date [...] fluticasone propionate (FLONASE) 50 MCG/ACT nasal spray [place] 2 sprays into each nostril once daily [...] ZOSTER VACCINE (2 of 3) 02/24/2016 12/30/2015 DEPRESSION SCREENING 02/08/2024 COVID-19 VACCINE (1 - 2024- season) 2024 INFLUENZA VACCINE (#1) 2024 9, 12/08/2017, 12/30/2015 [...] 5:09 PM CDT) Hepatitis C Antibody Non-react [facility] Comment: Hepatitis C Antibody screen indicates no [...] LAB - CHEMISTRY ORDERABLES Justina hua Result [address] [phone] from Last 3 Months or Most Recently Relevant to Health Maintenance Insurance [employer] MEDICARE [employer] Care Teams Public Health Microbiologist Relationship Specialty Start Date End Date Anthony Strong MD [address] [place] [address] PCP - General Family Medicine 07/11/12
--- OUTSIDE RECORDS SUMMARY | 2025-01-02 13:32 | XMS_ITS | Clinical Summary ---
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 Role Phone Unavailable Primary Care Provider [...] Scan (General) 11/23/2019 COVID-19 Vaccine ( - 2024-2 6 season) 2024 Influenza Adult (#1) 2024 RSV Immunization or 60+ Years (1 - 1-dose 75+ series) 2029 Hepatitis A Vaccines Aged Out No long er eligible based on patient's age to complete this topic Meningococcal B Vaccine Aged Out No l onger eligible based on patient's age to complete this topic Meningococcal Vaccine Aged Out No yasmeen mario eligible based on patient's age to complete this topic RSV Immunizations Under 20 Months Aged Out No longer eligible based on patient's age to complete this topic
== END 2025-01-02 13:30 | disposition home or self-care (01) ==
PROVIDERS: PCP Family Medicine; Visit Provider Physician Assistant Medical
DX: Z78.0 Asymptomatic menopausal state (principal); M85.852 Other specified disorders of bone density and structure, left thigh; M85.851 Other specified disorders of bone density and structure, right thigh
CPT/HCPCS: 77080